=== PATIENT | female | born 1935 | race Caucasian/White ===

== ENCOUNTER 2021-05-12 21:27 | Inpatient (IN) | payer MEDICARE, MEDICAID, SELFPAY ==
--- NOTE | ~2021-05-12 | XR_ITS ---
EXAMINATION: XR CHEST CLINICAL INFORMATION: Altered mental status with question of aspiration COMPARISON: 09/05/2019 TECHNIQUE: Frontal view of the chest was obtained. FINDINGS: The lungs are hypoinflated. Again seen is a left chest wall dual-lead pacemaker in unchanged position. There is mild interstitial prominence bilaterally most likely secondary to hypoinflation. No focal consolidation, lung masses or pleural effusions are detected. XR/XR chest 1V IMPRESSION: No acute intrathoracic disease. Hypoinflated lungs. No evidence of pulmonary aspiration.
--- NOTE | ~2021-05-12 | XR_ITS ---
EXAMINATION: XR BILATERAL HIPS WITH AP PELVIS CLINICAL INFORMATION: Right hip pain after a fall COMPARISON: None TECHNIQUE: AP view of the pelvis and 2 views of each hip were obtained. FINDINGS: No fracture or dislocation of hips. Sacroiliac joints are normal. Mild degenerative spurring of the superior acetabular rim of the right hip. Mild joint narrowing of both hips. Marked degenerative spondylosis of lower lumbar spine. Surgical coils over the lower pelvis. Ortega catheter in bladder. Moderate volume of stool in colon. Nonobstructive bowel pattern. XR/XR hip BI w PEL1V IMPRESSION: No acute abnormality of pelvis or hips.
--- NOTE | ~2021-05-12 | CT_ITS ---
EXAMINATION: CT HEAD WITHOUT CONTRAST CLINICAL INFORMATION: Altered mental status COMPARISON: None. TECHNIQUE: Contiguous axial imaging was performed from the skull base to vertex without intravenous contrast. This CT examination was performed using dose optimization techniques as appropriate, variously including the following: * Automated exposure control * Adjustment of mA and/or kV according to patient size (this includes techniques or standardized protocols for targeted exams where dose is matched to indication/reason for exam; i.e. extremities or head) Use of iterative reconstruction technique DLP: 722 mGy-cm. FINDINGS: There is no evidence of acute intracranial hemorrhage or territorial infarction. No abnormal mass effect or midline shift is seen. Benites to white matter differentiation is well preserved. No extra-axial fluid collections are identified. No hydrocephalus. Proportional prominence of the ventricles and sulcal spaces is consistent with mild volume loss. Patchy periventricular and deep white matter hypoattenuation is consistent with mild small vessel ischemic changes. No acute osseous or soft tissue abnormality. Chronic appearing depression of the right lamina papyracea.. The mastoid air cells and visualized portions of the paranasal sinuses are well aerated. CT/CT head/brain wo con IMPRESSION: No acute intracranial pathology. Chronic volume loss with small vessel ischemic change.
--- NOTE | ~2021-05-12 | CT_ITS ---
EXAMINATION: CT ABDOMEN AND PELVIS WITHOUT CONTRAST CLINICAL INFORMATION: Vomiting COMPARISON: 08/09/2018 TECHNIQUE: Multidetector volumetric imaging was performed from the superior aspect of the liver through the pubic symphysis. Sagittal and coronal reformatted images were obtained on the technologist's workstation. This CT examination was performed using dose optimization techniques as appropriate, variously including the following: *Automated exposure control *Adjustment of mA and/or kV according to patient size (this includes techniques or standardized protocols for targeted exams where dose is matched to indication/reason for exam; i.e. extremities or head) *Use of iterative reconstruction technique DLP: 937 mGy-cm FINDINGS: LUNG BASES: Groundglass opacities of both lung bases with nodular opacities throughout the visualized right lung. Coronary artery calcifications. LIVER, GALLBLADDER, AND BILIARY TREE: The liver is normal in size, shape, and attenuation. No focal hepatic lesion or biliary ductal dilatation is present. The gallbladder is unremarkable with no evidence of radiopaque gallstones, gallbladder wall thickening, or obvious pericholecystic inflammatory changes. PANCREAS: Diffuse atrophy of the pancreatic parenchyma. No focal abnormality. SPLEEN: Unremarkable. ADRENAL GLANDS: Unremarkable. KIDNEYS AND URETERS: Renal atrophy. No hydronephrosis. Left lower pole 0.8 cm calculus is 13 cm from the posterior axillary line. This measures 500 Hounsfield units. Exophytic right upper pole 1.8 cm cyst with peripheral calcification. BLADDER: Unremarkable. GASTROINTESTINAL TRACT: Postsurgical changes of Jamil-en-Y gastric bypass. Normal caliber small bowel. No obstruction. No colonic wall thickening or inflammation. No free air or free fluid. Normal appendix. ABDOMINAL WALL: Prior ventral abdominal wall hernia repair. Rectus diastases with eventration of the abdominal wall. LYMPH NODES: Normal. VASCULAR: Normal caliber aorta with moderate atherosclerotic calcification. PELVIC VISCERA: The uterus and adnexa are unremarkable. OSSEOUS STRUCTURES: No acute or suspicious osseous abnormality. Degenerative changes of the spine. CT/CT abdomen pelvis wo con IMPRESSION: Groundglass opacities of the lung bases with nodular opacities throughout the visualized right lung. This could be infectious or inflammatory. Nonobstructing left lower pole renal calculus. Postsurgical changes of gastric bypass. No bowel obstruction.
[2021-05-12 21:31] VITALS: BP 98/60; PULSE 150; O2SAT 88
--- NOTE | 2021-05-12 21:40 | ECG_ITS ---
Test Reason : SEPSIS Blood Pressure : / mmHG Vent. Rate : 070 BPM Atrial Rate : 075 BPM P-R Int : 000 ms QRS Dur : 142 ms QT Int : 524 ms P-R-T Axes : 000 099 059 degrees QTc Int : 565 ms Ventricular-paced rhythm Abnormal ECG When compared with ECG of 26-AUG-2019 15:10, No significant changes seen Referred By: Radha Melo Electronically Signed By:STEPH HERNANDEZ MD
[2021-05-12 21:51] VITALS: BP 101/45; PULSE 78; RESP 15; TEMP 37.9; O2SAT 84; BMI 37.7
[2021-05-12 21:57] LABS: Glucose, Whole Blood 147 mg/dL (60-115)
[2021-05-12 22:00] VITALS: BP 102/44; PULSE 76; RESP 16; TEMP 37.2; O2SAT 92
--- NOTE | 2021-05-12 22:05 | ED.AMS ---
HPI - Altered Mental Status General Chief Complaint: Altered Mental Status Stated Complaint: AMS ? SEPSIS Time Seen by Provider: 05/12/21 21:39 Source: EMS Mode of arrival: EMS Limitations: no limitations History of Present Illness HPI narrative: Patient is brought to the emergency room by ambulance from a care home. Patient was found earlier today unresponsive, with vomited over her. It seems that patient aspirated. Patient at baseline is alert and oriented x3, today she is confused. Patient had an episode of vomiting in the ED. Patient denies chest pain or shortness of breath, no abdominal pain. However, she is confused and unable to provide any significant history. Related Data Home Medications Medication Instructions Recorded Confirmed bumetanide 1 mg tablet 1 tab PO DAILY 05/13/21 05/13/21 calcitriol 0.25 mcg capsule 1 cap PO DAILY 05/13/21 05/13/21 diphenhydramine HCl 25 mg capsule 25 mg PO DAILY PRN 05/13/21 05/13/21 (Benadryl) ferrous sulfate 325 PO DAILY 05/13/21 fluticasone furoate 100 1 puff INHALATION DAILY 05/13/21 05/13/21 mcg-vilanterol 25 mcg/dose inhalation powder (Breo Ellipta) gabapentin 100 mg capsule 100 mg PO TID 05/13/21 05/13/21 lactulose 10 gram/15 mL oral 30 ml PO DAILY 05/13/21 05/13/21 solution (Generlac) lovastatin 20 mg tablet 1 tab PO DAILY 05/13/21 05/13/21 metoprolol tartrate 25 mg tablet 12.5 mg PO BID 05/13/21 05/13/21 montelukast 10 mg tablet 1 tab PO DAILY 05/13/21 05/13/21 omeprazole 20 mg capsule,delayed 1 cap PO DAILY 05/13/21 05/13/21 release oxycodone-acetaminophen 7.5 mg-325 1 tab PO Q4H PRN 05/13/21 05/13/21 mg tablet rivaroxaban 15 mg tablet (Xarelto) 1 tab PO DAILY 05/13/21 05/13/21 sertraline 50 mg tablet 1 tab PO DAILY 05/13/21 05/13/21 trazodone 100 mg tablet 100 mg PO BEDTIME 05/13/21 05/13/21 trazodone 50 mg tablet 1 tab PO BEDTIME 05/13/21 05/13/21 Allergies Allergy/AdvReac Type Severity Reaction Status Date / Time amoxicillin [From Augmentin] Allergy Unknown Unknown Verified 05/12/21 21:50 clavulanic acid Allergy Unknown Unknown Verified 05/12/21 21:50 [From Augmentin] Review of Systems Review of Systems: Yes Unobtainable due to mental status [facility] Past Medical History Medical History Anxiety Atrial fibrillation CKD (chronic kidney disease) stage 3, GFR 30-59 ml/min COPD (chronic obstructive pulmonary disease) Diabetes mellitus Diastolic heart failure Hyperlipidemia Iron deficiency anemia Obstructive sleep apnea Osteoarthritis Pacemaker Pulmonary hypertension Vitamin D deficiency Social History Social History Alcohol intake: unknown Patient Tobacco Use Status: Never used Tobacco Use of substances other than those prescribed or required for medical reasons: Unknown Advance Directives: No Advance Directives Information Provided: Yes Physical Exam Vital Signs: Vital Signs: Last Vital Signs Temp 99 F 05/13/21 00:30 Pulse 73 05/13/21 01:51 Resp 17 05/13/21 01:51 BP 96/79 05/13/21 01:51 Pulse Ox 98 05/13/21 01:51 Body Mass Index 37.7 Const: Other: Appearance: Alert. Oriented X1. Confused, answering questions inappropriately Eyes: Pupils equal, round and reactive to light. ENT: Duration mucous membranes Neck: Normal inspection. Neck supple. No lymph nodes noted. No crepitus CVS: Normal heart rate and rhythm. Pulses normal. Normal S1 and S2 Respiratory: No respiratory distress. Bilateral rhonchi, oxygen saturation 84% on room air Abdomen: Soft , nondistended, seems nontender Skin: Skin warm and dry. Extremities: +2 bilateral pitting edema in lower extremites. No Lacerations. No Rash Neuro: Cranial nerves 2-12 grossly intact Course Course Course Narrative: I discussed the patient with our hospitalist Dr. Lombardi, patient is being admitted. Although the x-ray did not show any acute findings, the CT scan showed ground-glass opacities, COVID test negative. Patient likely aspirated. Patient is DNR DNI, has history of CHF, at this time, patient received 1 L fluids, Zosyn, blood pressure improved to 120 systolic. Patient is awake, states she feels okay but nauseous, has not vomited, denies abdominal pain Patient's troponin is elevated, patient has no chest pain, no EKG changes, likely secondary to demand ischemia. Troponin 2 is currently being obtained along with venous gases. MDM - Altered Mental Status Lab Data Result diagrams: 05/12/21 22:13 05/12/21 22:12 Labs: Lab Results 05/12/21 05/12/21 05/12/21 Range/Units 21:53 22:12 22:13 WBC 10.5 (4.8-10.8) X10*3/uL RBC 4.31 (4.20-5.50) X10*6/uL Hgb 12.3 (12.0-16.0) g/dl Hct 39.1 (37-47) % MCV 90.7 (80-98) fL MCH 28.5 (27.0-33.0) pg MCHC 31.5 (31.0-35.0) g/dl RDW 13.9 (11.0-16.0) % Plt Count 359 (160-400) X10*3/uL MPV 9.8 (9.4-12.3) fL Immature Gran % (Auto) 0.7 H (0.0-0.4) % Neut % (Auto) 83.2 H (45-73) % Lymph % (Auto) 8.4 L (20-40) % [place] % (Auto) 6.9 (2-11) % Eos % (Auto) 0.3 (0-4) % Baso % (Auto) 0.5 (0-2) % Lymph # (Auto) 0.9 L (1.2-4.9) X10*3/uL [place] # (Auto) 0.7 (0.1-1.2) X10*3/uL Eos # (Auto) 0.0 (0.0-0.4) X10*3/uL Baso # (Auto) 0.1 (0.0-0.2) X10*3/uL Abs Immat Gran (auto) 0.07 H (0.00-0.03) X10*3/uL Absolute Neuts (auto) 8.7 H (2.0-8.3) X10*3/uL Absolute Nucleated RBC 0.000 (0.0-0.012) X10*3/uL Nucleated RBC % (auto) 0.0 (0.0-0.2) /100WBC Sodium 137 (135-145) mmol/L Potassium 3.9 (3.3-5.1) mmol/L Chloride 98 (96-108) mmol/L Carbon Dioxide 22 (22-29) mmol/L Anion Gap 21 H (12-20) BUN 92 H* (9-16) mg/dL Creatinine 3.87 H (0.5-1.4) mg/dL Estim Creat Clear Calc 13.8 Estimated GFR 11 POC Glucose 147 H (60-115) mg/dL Random Glucose 150 H (60-115) mg/dL Lactic Acid (0.5-2.0) mmol/L Calcium 8.8 (8.4-10.2) mg/dL Total Bilirubin 0.6 (0.0-1.0) mg/dL Direct Bilirubin 0.3 (0.0-0.5) mg/dL AST 37 H (5-31) U/L ALT 15 (0-31) U/L Alkaline Phosphatase 86 (39-117) U/L Troponin I High Sens (<3.5-17.0) ng/L B-Natriuretic Peptide (<100) pg/mL Total Protein 6.8 (6.5-8.0) g/dL Albumin 3.2 L (3.5-5.0) g/dL Urine Color Urine Appearance Urine pH (5.0-8.0) Ur Specific [place] (1.005-1.025) Urine Protein (NEG-TRACE) MG/DL Urine Glucose (UA) (NEG) MG/DL Urine Ketones (NEG) MG/DL Urine Blood (NEG) Urine Nitrite (NEG) Ur Leukocyte Esterase (NEG) Coronavirus (PCR) (Negative) Influenza Type A (PCR) (Negative) Influenza Type B (PCR) (Negative) RSV RNA Qual (PCR) (Negative) 05/12/21 05/12/21 05/12/21 Range/Units 22:13 22:13 22:19 WBC (4.8-10.8) X10*3/uL RBC (4.20-5.50) X10*6/uL Hgb (12.0-16.0) g/dl Hct (37-47) % MCV (80-98) fL MCH (27.0-33.0) pg MCHC (31.0-35.0) g/dl RDW (11.0-16.0) % Plt Count (160-400) X10*3/uL MPV (9.4-12.3) fL Immature Gran % (Auto) (0.0-0.4) % Neut % (Auto) (45-73) % Lymph % (Auto) (20-40) % [place] % (Auto) (2-11) % Eos % (Auto) (0-4) % Baso % (Auto) (0-2) % Lymph # (Auto) (1.2-4.9) X10*3/uL [place] # (Auto) (0.1-1.2) X10*3/uL Eos # (Auto) (0.0-0.4) X10*3/uL Baso # (Auto) (0.0-0.2) X10*3/uL Abs Immat Gran (auto) (0.00-0.03) X10*3/uL Absolute Neuts (auto) (2.0-8.3) X10*3/uL Absolute Nucleated RBC (0.0-0.012) X10*3/uL Nucleated RBC % (auto) (0.0-0.2) /100WBC Sodium (135-145) mmol/L Potassium (3.3-5.1) mmol/L Chloride (96-108) mmol/L Carbon Dioxide (22-29) mmol/L Anion Gap (12-20) BUN (9-16) mg/dL Creatinine (0.5-1.4) mg/dL Estim Creat Clear Calc Estimated GFR POC Glucose (60-115) mg/dL Random Glucose (60-115) mg/dL Lactic Acid 1.9 (0.5-2.0) mmol/L Calcium (8.4-10.2) mg/dL Total Bilirubin (0.0-1.0) mg/dL Direct Bilirubin (0.0-0.5) mg/dL AST (5-31) U/L ALT (0-31) U/L Alkaline Phosphatase (39-117) U/L Troponin I High Sens 73.6 H* (<3.5-17.0) ng/L B-Natriuretic Peptide 366 H (<100) pg/mL Total Protein (6.5-8.0) g/dL Albumin (3.5-5.0) g/dL Urine Color DARK YELLOW Urine Appearance CLEAR Urine pH 5.5 (5.0-8.0) Ur Specific [place] 1.020 (1.005-1.025) Urine Protein NEG (NEG-TRACE) MG/DL Urine Glucose (UA) NEG (NEG) MG/DL Urine Ketones NEG (NEG) MG/DL Urine Blood NEG (NEG) Urine Nitrite NEG (NEG) Ur Leukocyte Esterase NEG (NEG) Coronavirus (PCR) (Negative) Influenza Type A (PCR) (Negative) Influenza Type B (PCR) (Negative) RSV RNA Qual (PCR) (Negative) 05/12/21 Range/Units 22:27 WBC (4.8-10.8) X10*3/uL RBC (4.20-5.50) X10*6/uL Hgb (12.0-16.0) g/dl Hct (37-47) % MCV (80-98) fL MCH (27.0-33.0) pg MCHC (31.0-35.0) g/dl RDW (11.0-16.0) % Plt Count (160-400) X10*3/uL MPV (9.4-12.3) fL Immature Gran % (Auto) (0.0-0.4) % Neut % (Auto) (45-73) % Lymph % (Auto) (20-40) % [place] % (Auto) (2-11) % Eos % (Auto) (0-4) % Baso % (Auto) (0-2) % Lymph # (Auto) (1.2-4.9) X10*3/uL [place] # (Auto) (0.1-1.2) X10*3/uL Eos # (Auto) (0.0-0.4) X10*3/uL Baso # (Auto) (0.0-0.2) X10*3/uL Abs Immat Gran (auto) (0.00-0.03) X10*3/uL Absolute Neuts (auto) (2.0-8.3) X10*3/uL Absolute Nucleated RBC (0.0-0.012) X10*3/uL Nucleated RBC % (auto) (0.0-0.2) /100WBC Sodium (135-145) mmol/L Potassium (3.3-5.1) mmol/L Chloride (96-108) mmol/L Carbon Dioxide (22-29) mmol/L Anion Gap (12-20) BUN (9-16) mg/dL Creatinine (0.5-1.4) mg/dL Estim Creat Clear Calc Estimated GFR POC Glucose (60-115) mg/dL Random Glucose (60-115) mg/dL Lactic Acid (0.5-2.0) mmol/L Calcium (8.4-10.2) mg/dL Total Bilirubin (0.0-1.0) mg/dL Direct Bilirubin (0.0-0.5) mg/dL AST (5-31) U/L ALT (0-31) U/L Alkaline Phosphatase (39-117) U/L Troponin I High Sens (<3.5-17.0) ng/L B-Natriuretic Peptide (<100) pg/mL Total Protein (6.5-8.0) g/dL Albumin (3.5-5.0) g/dL Urine Color Urine Appearance Urine pH (5.0-8.0) Ur Specific [place] (1.005-1.025) Urine Protein (NEG-TRACE) MG/DL Urine Glucose (UA) (NEG) MG/DL Urine Ketones (NEG) MG/DL Urine Blood (NEG) Urine Nitrite (NEG) Ur Leukocyte Esterase (NEG) Coronavirus (PCR) NEGATIVE (Negative) Influenza Type A (PCR) NEGATIVE (Negative) Influenza Type B (PCR) NEGATIVE (Negative) RSV RNA Qual (PCR) NEGATIVE (Negative) Imaging Data Chest x-ray: Radiologist's impression: The lungs are hypoinflated. Again seen is a left chest wall dual-lead pacemaker in unchanged position. There is mild interstitial prominence bilaterally most likely secondary to hypoinflation. No focal consolidation, lung masses or pleural effusions are detected. XR/XR chest 1V IMPRESSION: No acute intrathoracic disease. Hypoinflated lungs. No evidence of pulmonary aspiration. CT scan - head: Radiologist's impression: There is no evidence of acute intracranial hemorrhage or territorial infarction. No abnormal mass effect or midline shift is seen. Benites to white matter differentiation is well preserved. No extra-axial fluid collections are identified. No hydrocephalus. Proportional prominence of the ventricles and sulcal spaces is consistent with mild volume loss. Patchy periventricular and deep white matter hypoattenuation is consistent with mild small vessel ischemic changes. No acute osseous or soft tissue abnormality. Chronic appearing depression of the right lamina papyracea.. The mastoid air cells and visualized portions of the paranasal sinuses are well aerated. ? CT/CT head/brain wo con IMPRESSION: No acute intracranial pathology. Chronic volume loss with small vessel ischemic change. CT scan - abdomen: Radiologist's impression: FINDINGS: LUNG BASES: Groundglass opacities of both lung bases with nodular opacities throughout the visualized right lung. Coronary artery calcifications. LIVER, GALLBLADDER, AND BILIARY TREE: The liver is normal in size, shape, and attenuation. No focal hepatic lesion or biliary ductal dilatation is present. The gallbladder is unremarkable with no evidence of radiopaque gallstones, gallbladder wall thickening, or obvious pericholecystic inflammatory changes.? PANCREAS: Diffuse atrophy of the pancreatic parenchyma. No focal abnormality.? SPLEEN: Unremarkable.? ADRENAL GLANDS: Unremarkable.? KIDNEYS AND URETERS: Renal atrophy. No hydronephrosis. Left lower pole 0.8 cm calculus is 13 cm from the posterior axillary line. This measures 500 Hounsfield units. Exophytic right upper pole 1.8 cm cyst with peripheral calcification. BLADDER: Unremarkable.? GASTROINTESTINAL TRACT: Postsurgical changes of Jamil-en-Y gastric bypass. Normal caliber small bowel. No obstruction. No colonic wall thickening or inflammation. No free air or free fluid. Normal appendix. ABDOMINAL WALL: Prior ventral abdominal wall hernia repair. Rectus diastases with eventration of the abdominal wall.? LYMPH NODES: Normal. VASCULAR: Normal caliber aorta with moderate atherosclerotic calcification. PELVIC VISCERA: The uterus and adnexa are unremarkable.? OSSEOUS STRUCTURES: No acute or suspicious osseous abnormality. Degenerative changes of the spine.? CT/CT abdomen pelvis wo con IMPRESSION: Groundglass opacities of the lung bases with nodular opacities throughout the visualized right lung. This could be infectious or inflammatory. ? Nonobstructing left lower pole renal calculus. ? Postsurgical changes of gastric bypass. No bowel obstruction. ECG Data ECG #1: Attestation: I personally reviewed and interpreted this ECG as follows: (Heart rate 70, no ST segment depression or elevation, nonspecific interventricular block) Critical Care Time Critical Care Time Critical Care Time: Yes Total Critical Care Time: 60 Attestation: Total critical care time of 60 minutes, including direct patient care, stabilization, and consult Discharge Plan Discharge Clinical Impression: Vomiting, Aspiration pneumonia, [id number] kidney injury, Demand ischemia Patient Disposition: Admitted As Inpatient
[2021-05-12 22:20] LABS: MANUAL DIFF FLAG NO
[2021-05-12 22:22] LABS: Basophils Absolute Auto 0.1 X10*3/uL (0.0-0.2); Basophils Percent Auto 0.5 % (0-2); Eosinophils Percent Auto 0.3 % (0-4); Hematocrit 39.1 % (37-47); Hemoglobin 12.3 g/dl (12.0-16.0); Imm Gran Abs Auto 0.07 X10*3/uL (0.00-0.03); Imm Gran Pct Auto 0.7 % (0.0-0.4); Lymphocytes Absolute Auto 0.9 X10*3/uL (1.2-4.9); Lymphocytes Percent Auto 8.4 % (20-40); Mean Corpuscular HGB Conc 31.5 g/dl (31.0-35.0); Mean Corpuscular Hemoglobin 28.5 pg (27.0-33.0); Mean Corpuscular Volume 90.7 fL (80-98); Mean Platelet Volume 9.8 fL (9.4-12.3); Monocytes Absolute Auto 0.7 X10*3/uL (0.1-1.2); Monocytes Percent Auto 6.9 % (2-11); Neutrophils Absolute Auto 8.7 X10*3/uL (2.0-8.3); Neutrophils Percent Auto 83.2 % (45-73); Platelet Count 359 X10*3/uL (160-400); Red Blood Count 4.31 X10*6/uL (4.20-5.50); Red Cell Distribution Width 13.9 % (11.0-16.0); White Blood Count 10.5 X10*3/uL (4.8-10.8)
[2021-05-12] MEDS: ondansetron HCL 4 MG/2 ML VIAL IVPUSH (22:26)
[2021-05-12] MEDS: 0.9 % Sodium Chloride 1,000 ML 999 ML IVCONT (22:26)
[2021-05-12 22:27] LABS: Glucose Urine UA NEG (NEG); Leukocyte Esterase Urine NEG (NEG); Nitrite Urine NEG (NEG); PH 5.5 (5.0-8.0); Urine Blood NEG (NEG); Urine Ketones NEG (NEG); Urine Protein NEG (NEG-TRACE)
[2021-05-12 22:29] LABS: Appearance Urine CLEAR; Color Urine DARK YELLOW
[2021-05-12] MEDS: Piperacillin Sodium/Tazobactam 3.375 GM in 0.9 % Sodium Chloride 50 ML IV (22:31)
--- NOTE | 2021-05-12 22:31 | PC.NURSE ---
Pt has been drowsy but easily arousable to voice. Mouth breathing, pale, pupils PERRLA, poor bed mobility and unable to follow commands. a fib on monitor. pt has been a very difficult stick.
[2021-05-12 22:34] VITALS: BP 86/46
[2021-05-12 22:41] LABS: Lactic Acid 1.9 mmol/L (0.5-2.0)
[2021-05-12 22:52] LABS: B Type Natriuretic Peptide 366 pg/mL (<100); Troponin-I High Sensitivity 73.6 ng/L (<3.5-17.0)
[2021-05-12 22:53] LABS: Alanine Aminotransferase 15 U/L (0-31); Albumin Level 3.2 g/dL (3.5-5.0); Alkaline Phosphatase 86 U/L (39-117); Anion Gap 21 (12-20); Aspartate Amino Transferase 37 U/L (5-31); Bilirubin Direct 0.3 mg/dL (0.0-0.5); Bilirubin Total 0.6 mg/dL (0.0-1.0); Blood Urea Nitrogen 92 mg/dL (9-16); Calcium 8.8 mg/dL (8.4-10.2); Carbon Dioxide 22 mmol/L (22-29); Chloride 98 mmol/L (96-108); Creatinine Clr Calc Pharmacy 13.8; Estimated Glomerular Filt Rate 11; Glucose Random 150 mg/dL (60-115); Potassium 3.9 mmol/L (3.3-5.1); Sodium 137 mmol/L (135-145); Total Protein 6.8 g/dL (6.5-8.0)
[2021-05-12 23:11] LABS: Influenza A PCR NEGATIVE (Negative); Influenza B PCR NEGATIVE (Negative); Resp Syncy Virus RNA Qual PCR NEGATIVE (Negative); SARS COV2 PCR INHOUSE NEGATIVE (Negative)
[2021-05-12 23:16] VITALS: BP 109/90; PULSE 72; RESP 17; TEMP 37.2; O2SAT 94
[2021-05-13] VITALS (12 sets, daily range): BP systolic 94–168; BP diastolic 32–79; PULSE 67–93; RESP 15–70; TEMP 36.2–37.7; O2SAT 93–99; BMI 37.8
--- NOTE | 2021-05-13 00:07 | PC.NURSE ---
PT RETURNED FROM CT SCAN. PT WAKES EASILY, MOSTLY TAMAZIGHT SPEAKING. NO RESPIRATORY DISTRESS. PT DOES NOT STAY AWAKE, FALLS BACK ASLEEP WHEN NOT IN CONVERSATION.
[2021-05-13 01:49] LABS: VBG Base Excess -4.6 mmol/L; VBG HCO3 15 mmol/L (22-26); VBG pCO2 17 mmHg; VBG pH 7.53 (7.32-7.43); VBG pO2 154 mmHg; Venous Blood Gas Refer to POC result
[2021-05-13] MEDS: Lactated Ringers 1,000 ML 100 ML IVCONT ×3 (02:34→20:51)
[2021-05-13 02:36] LABS: Troponin-I High Sensitivity 51.8 ng/L (<3.5-17.0)
--- NOTE | 2021-05-13 02:52 | PC.NURSE ---
LEVOFLOXACIN NOT VERIFIED BY PHARMACY, DELAY IN ADMINISTRATION.
--- NOTE | 2021-05-13 04:19 | PC.NURSE ---
report given to rn on floor, pt ready for transport.
--- NOTE | 2021-05-13 05:26 | PM.IMHP ---
History of Present Illness Date of Service: 05/13/21 Chief Complaint: Unresponsive This is an 86-year-old female with past medical history of AFib, CKD, COPD, DM, diastolic heart failure, HLD, anxiety, PATSY, pulmonary hypertension, who is sent from assisted after being found unresponsive in bed with vomit all over her. Patient's patch speaking, very lethargic and somnolent unable to get much history from her. Therefore history is obtained mostly from ED physician. On arrival to the ED patient was found to have a temp of a 100.3?, was satting 84% on room air, currently on 2 L satting 94%. Her other vitals are significant for blood pressure of 101/45 and a heart rate 78. For WBC count of 10.5, hemoglobin of 12.3, venous blood pH of 7.53 with no significant abnormality otherwise BUN of 92, creatinine of 3.87 with baseline around 32/1.91, AST of 37, has sensed V troponin 73.6, trended down to 51.8, BNP of 366, albumin of 3.2, UA negative. Chest x-ray negative. COVID negative. Patient will be admitted for further management Past medical history as per EMR Review of Systems Review of Systems: Yes all other systems are reviewed and are negative [facility] Medical History Anxiety Atrial fibrillation CKD (chronic kidney disease) stage 3, GFR 30-59 ml/min COPD (chronic obstructive pulmonary disease) Diabetes mellitus Diastolic heart failure Hyperlipidemia Iron deficiency anemia Obstructive sleep apnea Osteoarthritis Pacemaker Pulmonary hypertension Vitamin D deficiency Social History Household Members: Other Housing: Jail Alcohol intake: unknown Patient Tobacco Use Status: Never used Tobacco Use of substances other than those prescribed or required for medical reasons: No Have you been hit, kicked, punched, or otherwise hurt by someone within the past year? If so, by whom?: No Do you feel safe in your current relationship?: No Current Relationship Is there a partner from a previous relationship who is making you feel unsafe now?: No Are you made to feel afraid or neglected: No Advance Directives: No Advance Directives Information Provided: Yes Advance Directives on File: Yes Advance Directives Date on File: 10/16/19 Do you have thoughts of harming others: None Do you have a plan to hurt others: No Plan Recently lost weight without trying: Unsure Nutrition Risks: On aspiration precautions Patient : No : No Poor oral hygiene: No Meds Allergies Allergy/AdvReac Type Severity Reaction Status Date / Time amoxicillin [From Augmentin] Allergy Unknown Unknown Verified 05/12/21 21:50 clavulanic acid Allergy Unknown Unknown Verified 05/12/21 21:50 [From Augmentin] Active Medications: Current Medications Generic Name Dose Route Start Last Admin Trade Name Freq PRN Reason Stop Dose Admin Acetaminophen 650 mg 05/13/21 01:43 Acetaminophen 325 Mg Tablet PO Q6H PRN Pain, Mild (Pain Scale 1-3) Calcitriol 0.25 mcg 05/13/21 09:00 Calcitriol 0.25 Mcg Capsule PO DAILY [facility] Diphenhydramine HCl 25 mg 05/13/21 02:53 Diphenhydramine Hcl 25 Mg Tablet PO DAILY PRN Itching Docusate Sodium 100 mg 05/13/21 01:43 Docusate Sodium 100 Mg Capsule PO DAILY PRN Constipation Fluticasone/Vilanterol 1 puff 05/13/21 09:00 Fluticasone/Vilanterol 100/25 Blst.W.Dev INHALE DAILY [facility] Gabapentin 100 mg 05/13/21 09:00 Gabapentin 100 Mg Capsule PO TID [facility] Lactated Ringer's 1,000 mls @ 100 mls/hr 05/13/21 01:43 05/13/21 02:34 Lr IVCONT 100 mls/hr .Q10H [facility] Administration Piperacillin Sod/Tazobactam 50 mls @ 100 mls/hr 05/13/21 06:00 Sod 3.375 gm/ Sodium Chloride IV Q8H [facility] Lactulose 20 gm 05/13/21 09:00 Lactulose 20 Gm/30 Ml Solution PO DAILY [facility] Metoprolol Tartrate 12.5 mg 05/13/21 09:00 Metoprolol Tartrate 12.5 Mg Halftab PO BID [facility] Protocol Montelukast Sodium 10 mg 05/13/21 09:00 Montelukast Sodium 10 Mg Tablet PO DAILY [facility] Omeprazole 20 mg 05/13/21 09:00 Omeprazole 20 Mg Capsule.Dr PO DAILY [facility] Ondansetron HCl 4 mg 05/13/21 01:43 Ondansetron Hcl 4 Mg/2 Ml Vial IVPUSH Q8H PRN Nausea and Vomiting Oxycodone HCl 7.5 mg 05/13/21 03:28 Oxycodone Hcl Immed Release 5 Mg Tablet PO Q4H PRN Pain (Scale Score 7-10) Pharmacy Consult 1 each 05/12/21 23:29 Consult Rx Perform Med Rec MISCELLANE ONCE PRN Consult order Rivaroxaban 15 mg 05/13/21 09:00 Rivaroxaban 15 Mg Tablet PO DAILY [facility] Sertraline HCl 50 mg 05/13/21 09:00 Sertraline Hcl 50 Mg Tablet PO DAILY [facility] Sodium Chloride 3 ml 05/13/21 08:00 0.9 % Sodium Chloride Flush 3 Ml Syringe IVFLUSH QSHIFT [facility] Trazodone HCl 50 mg 05/13/21 21:00 Trazodone Hcl 50 Mg Tablet PO BEDTIME [facility] Trazodone HCl 100 mg 05/13/21 21:00 Trazodone Hcl 100 Mg Tablet PO BEDTIME [facility] Home Medications Medication Instructions Recorded Confirmed Last Taken Type bumetanide 1 mg tablet 1 tab PO DAILY 05/13/21 05/13/21 Unknown History calcitriol 0.25 mcg capsule 1 cap PO DAILY 05/13/21 05/13/21 Unknown History diphenhydramine HCl 25 mg capsule 25 mg PO DAILY PRN 05/13/21 05/13/21 Unknown History (Benadryl) ferrous sulfate 325 PO DAILY 05/13/21 Unknown History fluticasone furoate 100 1 puff INHALATION DAILY 05/13/21 05/13/21 Unknown History mcg-vilanterol 25 mcg/dose inhalation powder (Breo Ellipta) gabapentin 100 mg capsule 100 mg PO TID 05/13/21 05/13/21 Unknown History lactulose 10 gram/15 mL oral 30 ml PO DAILY 05/13/21 05/13/21 Unknown History solution (Generlac) lovastatin 20 mg tablet 1 tab PO DAILY 05/13/21 05/13/21 Unknown History metoprolol tartrate 25 mg tablet 12.5 mg PO BID 05/13/21 05/13/21 Unknown History montelukast 10 mg tablet 1 tab PO DAILY 05/13/21 05/13/21 Unknown History omeprazole 20 mg capsule,delayed 1 cap PO DAILY 05/13/21 05/13/21 Unknown History release oxycodone-acetaminophen 7.5 mg-325 1 tab PO Q4H PRN 05/13/21 05/13/21 Unknown History mg tablet rivaroxaban 15 mg tablet (Xarelto) 1 tab PO DAILY 05/13/21 05/13/21 Unknown History sertraline 50 mg tablet 1 tab PO DAILY 05/13/21 05/13/21 Unknown History trazodone 100 mg tablet 100 mg PO BEDTIME 05/13/21 05/13/21 Unknown History trazodone 50 mg tablet 1 tab PO BEDTIME 05/13/21 05/13/21 Unknown History Physical Exam Vital Signs and Narrative: Vital Signs: Last Vital Signs Temp 97.8 F 05/13/21 05:10 Pulse 93 05/13/21 05:10 Resp 70 H 05/13/21 05:10 BP 168/74 H 05/13/21 05:10 Pulse Ox 94 05/13/21 05:10 Body Mass Index 37.8 Const: General: patient obtunded Orientation/consciousness: patient obtunded Eyes: General: appearance normal, both eyes and all related structures Resp: Effort & Inspection: normal respiratory effort Auscultation: rales and rhonchi Cardio: Rate: regular rate Rhythm: regular rhythm GI: Palpation (GI): Soft to palpation Auscultation: normal bowel sounds Skin: General skin exam: no rashes or lesions noted Neuro: General: patient obtunded Extrem: General: Yes normal to inspection and Yes no pedal edema Results Labs CBC and Chem 7: 05/12/21 22:13 05/12/21 22:12 Labs: Laboratory Results - last 24 hr 05/12/21 05/12/21 05/12/21 21:53 22:12 22:13 MCV 90.7 MCH 28.5 MCHC 31.5 RDW 13.9 Plt Count 359 MPV 9.8 Immature Gran % (Auto) 0.7 H Neut % (Auto) 83.2 H Lymph % (Auto) 8.4 L [place] % (Auto) 6.9 Eos % (Auto) 0.3 Baso % (Auto) 0.5 Lymph # (Auto) 0.9 L [place] # (Auto) 0.7 Eos # (Auto) 0.0 Baso # (Auto) 0.1 Abs Immat Gran (auto) 0.07 H Absolute Neuts (auto) 8.7 H Absolute Nucleated RBC 0.000 Nucleated RBC % (auto) 0.0 VBG pH VBG pCO2 VBG pO2 VBG HCO3 VBG O2 Saturation VBG Base Excess Anion Gap 21 H Estim Creat Clear Calc 13.8 Estimated GFR 11 POC Glucose 147 H Random Glucose 150 H Lactic Acid Calcium 8.8 Total Bilirubin 0.6 Direct Bilirubin 0.3 AST 37 H ALT 15 Alkaline Phosphatase 86 Troponin I High Sens B-Natriuretic Peptide Total Protein 6.8 Albumin 3.2 L Urine Color Urine Appearance Urine pH Ur Specific [place] Urine Protein Urine Glucose (UA) Urine Ketones Urine Blood Urine Nitrite Ur Leukocyte Esterase Coronavirus (PCR) Influenza Type A (PCR) Influenza Type B (PCR) RSV RNA Qual (PCR) 05/12/21 05/12/21 05/12/21 22:13 22:13 22:19 MCV MCH MCHC RDW Plt Count MPV Immature Gran % (Auto) Neut % (Auto) Lymph % (Auto) [place] % (Auto) Eos % (Auto) Baso % (Auto) Lymph # (Auto) [place] # (Auto) Eos # (Auto) Baso # (Auto) Abs Immat Gran (auto) Absolute Neuts (auto) Absolute Nucleated RBC Nucleated RBC % (auto) VBG pH VBG pCO2 VBG pO2 VBG HCO3 VBG O2 Saturation VBG Base Excess Anion Gap Estim Creat Clear Calc Estimated GFR POC Glucose Random Glucose Lactic Acid 1.9 Calcium Total Bilirubin Direct Bilirubin AST ALT Alkaline Phosphatase Troponin I High Sens 73.6 H* B-Natriuretic Peptide 366 H Total Protein Albumin Urine Color DARK YELLOW Urine Appearance CLEAR Urine pH 5.5 Ur Specific [place] 1.020 Urine Protein NEG Urine Glucose (UA) NEG Urine Ketones NEG Urine Blood NEG Urine Nitrite NEG Ur Leukocyte Esterase NEG Coronavirus (PCR) Influenza Type A (PCR) Influenza Type B (PCR) RSV RNA Qual (PCR) 05/12/21 05/13/21 05/13/21 22:27 01:40 01:40 MCV MCH MCHC RDW Plt Count MPV Immature Gran % (Auto) Neut % (Auto) Lymph % (Auto) [place] % (Auto) Eos % (Auto) Baso % (Auto) Lymph # (Auto) [place] # (Auto) Eos # (Auto) Baso # (Auto) Abs Immat Gran (auto) Absolute Neuts (auto) Absolute Nucleated RBC Nucleated RBC % (auto) VBG pH 7.53 H VBG pCO2 17 VBG pO2 154 VBG HCO3 15 L VBG O2 Saturation 96.0 VBG Base Excess -4.6 Anion Gap Estim Creat Clear Calc Estimated GFR POC Glucose Random Glucose Lactic Acid Calcium Total Bilirubin Direct Bilirubin AST ALT Alkaline Phosphatase Troponin I High Sens 51.8 H* B-Natriuretic Peptide Total Protein Albumin Urine Color Urine Appearance Urine pH Ur Specific [place] Urine Protein Urine Glucose (UA) Urine Ketones Urine Blood Urine Nitrite Ur Leukocyte Esterase Coronavirus (PCR) NEGATIVE Influenza Type A (PCR) NEGATIVE Influenza Type B (PCR) NEGATIVE RSV RNA Qual (PCR) NEGATIVE ECG Interpretation: Wide QRS rhythm Has a QT see interval 565, Imaging Radiologist's Impressions: Impressions Chest X-Ray 05/12/21 21:40 IMPRESSION: No acute intrathoracic disease. Hypoinflated lungs. No evidence of pulmonary aspiration. Head CT 05/12/21 23:30 IMPRESSION: No acute intracranial pathology. Chronic volume loss with small vessel ischemic change. Abdomen/Pelvis CT 05/13/21 00:38 IMPRESSION: Groundglass opacities of the lung bases with nodular opacities throughout the visualized right lung. This could be infectious or inflammatory. Nonobstructing left lower pole renal calculus. Postsurgical changes of gastric bypass. No bowel obstruction. Assessment and Plan (1) Acute respiratory failure with hypoxia: Status: Acute (2) Vomiting: Status: Acute (3) Aspiration pneumonia: Status: Acute (4) [id number] kidney injury: Status: Acute (5) Elevated troponin: Status: Acute (6) Prolonged QT interval: Status: Acute (7) Encephalopathy: Status: Acute 86-year-old female who was brought in from assisted for unresponsiveness after she was found to have vomited all over herself. Found to be hypoxic # acute hypoxic respiratory failure - most likely secondary to aspiration pneumonia - patient was found unresponsive with vomit all over herself - on presentation O2 was 84 % on room air - currently on 2 L of oxygen satting 94% - has rhonchi on exam - chest x-ray negative but CT abdomen shows bilateral ground-glass opacities in the lung bases with nodular opacities throughout the visualized right lung. - at this time will cover her for aspiration pneumonia - O2 as required # encephalopathy - possibly secondary to MIKA/hypoxia - patient arousable but lethargic - management of pneumonia, MIKA, and hypoxia - follow mental status # vomiting - unclear etiology - abdominal CT/pelvic negative - given her prolonged QTC will be very conservative with Zofran - NPO # MIKA and CKD - significantly elevated creatinine - most likely prerenal secondary to dehydration - will start on IV fluids - follow BMP # elevated troponin - no EKG changes suggestive of ACS - has prolonged QT interval - troponin trended down - admit to telemetry # prolonged QTc - normal potassium, will check magnesium level - avoid QT prolonging medications Her home medications # AFib - continue Xarelto, metoprolol # heart failure - although has elevated BNP, clinically does not appear to be in heart failure - will hold her budesonide for 1-2 days given her MIKA - if creatinine function worsens, resume budesonide, and evaluate for CHF # history of diabetes - will place her on low-dose sliding scale insulin - at this time patient is NPO but wounds resumes eating will consider diabetic diet DVT prophylaxis: Xarelto Quality Stroke Does the patient have a stroke diagnosis?: No VTE Prior VTE?: No VTE Risk Level:: Medical - moderate - high VTE Device Contraindication: Treatment Not Indicated VTE Drug Contraindication: N/A - Med Ordered
[2021-05-13] MEDS: Piperacillin Sodium/Tazobactam 3.375 GM in 0.9 % Sodium Chloride 50 ML IV (06:13)
[2021-05-13 07:02] LABS: MANUAL DIFF FLAG SCAN; PLT CLUMP 1; SCAN SMEAR FLAG 1
[2021-05-13 07:05] LABS: Basophils Percent Auto 0.3 % (0-2); Eosinophils Percent Auto 0.2 % (0-4); Hemoglobin 11.5 g/dl (12.0-16.0); Imm Gran Abs Auto 0.07 X10*3/uL (0.00-0.03); Imm Gran Pct Auto 0.6 % (0.0-0.4); Lymphocytes Absolute Auto 0.5 X10*3/uL (1.2-4.9); Lymphocytes Percent Auto 4.4 % (20-40); Mean Corpuscular HGB Conc 31.1 g/dl (31.0-35.0); Mean Corpuscular Hemoglobin 28.6 pg (27.0-33.0); Monocytes Absolute Auto 0.8 X10*3/uL (0.1-1.2); Neutrophils Absolute Auto 10.3 X10*3/uL (2.0-8.3); Neutrophils Percent Auto 87.5 % (45-73); Red Blood Count 4.02 X10*6/uL (4.20-5.50); Red Cell Distribution Width 13.9 % (11.0-16.0); White Blood Count 11.8 X10*3/uL (4.8-10.8)
[2021-05-13 07:19] LABS: Glucose, Whole Blood 137 mg/dL (60-115)
[2021-05-13 07:24] LABS: Anion Gap 21 (12-20); Blood Urea Nitrogen 85 mg/dL (9-16); Calcium 8.2 mg/dL (8.4-10.2); Carbon Dioxide 20 mmol/L (22-29); Chloride 102 mmol/L (96-108); Creatinine Clr Calc Pharmacy 16.1; Estimated Glomerular Filt Rate 13; Glucose Random 122 mg/dL (60-115); Magnesium 2.6 mg/dL (1.6-2.6); Potassium 3.9 mmol/L (3.3-5.1); Sodium 139 mmol/L (135-145)
[2021-05-13] MEDS: Fluticasone/Vilanterol 100/25 BLST.W.DEV 1 PUFF INHALE (07:56)
[2021-05-13 08:09] LABS: Platelet Count 217 X10*3/uL (160-400)
[2021-05-13 08:10] LABS: Mean Platelet Volume 11.4 fL (9.4-12.3); SLIDE REVIEW VERIFIED
--- NOTE | 2021-05-13 08:44 | PM.CNNEP ---
History of Present Illness Reason for Consult Consult date: 05/13/21 Reason for consult: MIKA Chief Complaint Chief complaint: Hypoxic, Aspiration PNA, MIKA History of Present Illness Narrative: 86 yo with MIKA and CKD past medical history of AFib, CKD, COPD, DM, diastolic heart failure, HLD, anxiety, PATSY, pulmonary hypertension, who is sent from skilled nursing after being found unresponsive in bed with vomit all over her.? KIDNEYS AND URETERS: Renal atrophy. No hydronephrosis. Left lower pole 0.8 cm calculus is 13 cm from the posterior axillary line. This measures 500 Hounsfield units. Exophytic right upper pole 1.8 cm cyst with peripheral calcification. Review of Systems Review of Systems Constitutional : No Weight loss, No Fever, No Chills, No Night Sweats, No Fatigue, No Malaise ENT/Mouth : No Hearing loss, No Ear Pain, No Nasal Congestion, No Sinus Pain, No Hoarseness, No sore throat, No Rhinorrhea, No Swallowing Difficulty Eyes: No Eye Pain, No Swelling, No Redness, No Foreign Body, No Discharge, No Vision Changes Cardiovascular : No Chest Pain, No SOB, No Dyspnea on Exertion, No Orthopnea, No Edema, No Palpitations Respiratory : No Cough, No Sputum, No Wheezing, No Smoke Exposure, No Dyspnea Gastrointestinal : No Nausea, No Vomiting, No Diarrhea, No Constipation, No abdominal Pain, No Hematochezia, No Melena Genitourinary : no irregular bleeding, No Dysuria, No Urinary Frequency, No Hematuria, No Urinary Incontinence, No Urgency, No Flank Pain, No Urinary Flow Changes, No Hesitancy Musculoskeletal : No joint pain, No Myalgias, No Joint Swelling Skin : No Skin Lesions, No rash Neuro : No Weakness, No Numbness, No Paresthesias, No Loss of Consciousness, No Dizziness, No Headache Psych : No Anxiety/Panic, No Depression, No SI/HI/AH/VH, No Social Issues, Heme/Lymph: No Bruising, No Bleeding,No Lymphadenopathy Endocrine : No Polyuria, No Polydipsia, No Temperature Intolerance Yes all other systems are reviewed and are negative and Unobtainable due to mental status PMFSH Past Medical History Medical History Anxiety Atrial fibrillation CKD (chronic kidney disease) stage 3, GFR 30-59 ml/min COPD (chronic obstructive pulmonary disease) Diabetes mellitus Diastolic heart failure Hyperlipidemia Iron deficiency anemia Obstructive sleep apnea Osteoarthritis Pacemaker Pulmonary hypertension Vitamin D deficiency Social History Social History Household Members: Other Housing: [facility] Alcohol intake: unknown Patient Tobacco Use Status: Never used Tobacco Use of substances other than those prescribed or required for medical reasons: No Currently Displaying Signs/Symptoms of Drug Intoxication Withdrawal: No Have you been hit, kicked, punched, or otherwise hurt by someone within the past year? If so, by whom?: No Do you feel safe in your current relationship?: No Current Relationship Is there a partner from a previous relationship who is making you feel unsafe now?: No Are you made to feel afraid or neglected: No Advance Directives: No Advance Directives Information Provided: Yes Advance Directives on File: Yes Advance Directives Date on File: 10/16/19 Do you have thoughts of harming others: None Do you have a plan to hurt others: No Plan Recently lost weight without trying: Unsure Nutrition Risks: On aspiration precautions Patient : No : No Poor oral hygiene: No Meds Allergies Allergy/AdvReac Type Severity Reaction Status Date / Time amoxicillin [From Augmentin] Allergy Unknown Unknown Verified 05/12/21 21:50 clavulanic acid Allergy Unknown Unknown Verified 05/12/21 21:50 [From Augmentin] Active Medications: Current Medications Generic Name Dose Route Start Last Admin Trade Name Freq PRN Reason Stop Dose Admin Acetaminophen 650 mg 05/13/21 01:43 Acetaminophen 325 Mg Tablet PO Q6H PRN Pain, Mild (Pain Scale 1-3) Calcitriol 0.25 mcg 05/13/21 09:00 Calcitriol 0.25 Mcg Capsule PO DAILY [facility] Dextrose 25 gm 05/13/21 05:40 Dextrose 50 % 25 Gm/50 Ml Vial IVPUSH Q15M PRN per Hypoglycemia Standing Ord. Protocol Diphenhydramine HCl 25 mg 05/13/21 02:53 Diphenhydramine Hcl 25 Mg Tablet PO DAILY PRN Itching Docusate Sodium 100 mg 05/13/21 01:43 Docusate Sodium 100 Mg Capsule PO DAILY PRN Constipation Fluticasone/Vilanterol 1 puff 05/13/21 09:00 05/13/21 07:56 Fluticasone/Vilanterol 100/25 Blst.W.Dev INHALE 1 puff DAILY [facility] Administration Gabapentin 100 mg 05/13/21 09:00 Gabapentin 100 Mg Capsule PO TID [facility] Glucose 15 gm 05/13/21 05:40 Glucose Gel 15 Gm Gel..Gram. PO Q15M PRN per Hypoglycemia Standing Ord. Protocol Lactated Ringer's 1,000 mls @ 100 mls/hr 05/13/21 01:43 05/13/21 02:34 Lr IVCONT 100 mls/hr .Q10H [facility] Administration Piperacillin Sod/Tazobactam 50 mls @ 100 mls/hr 05/13/21 14:00 Sod 2.275 gm/ Sodium Chloride IV Q8H [facility] Insulin Human Lispro 0 unit 05/13/21 07:30 05/13/21 07:21 Insulin Lispro 100 Unit/Ml 3 Ml Vial SUBCUT Not Given QIDACHS [facility] Protocol Lactulose 20 gm 05/13/21 09:00 Lactulose 20 Gm/30 Ml Solution PO DAILY [facility] Metoprolol Tartrate 12.5 mg 05/13/21 09:00 Metoprolol Tartrate 12.5 Mg Halftab PO BID [facility] Protocol Montelukast Sodium 10 mg 05/13/21 09:00 Montelukast Sodium 10 Mg Tablet PO DAILY [facility] Omeprazole 20 mg 05/13/21 09:00 Omeprazole 20 Mg Capsule.Dr PO DAILY [facility] Oxycodone HCl 7.5 mg 05/13/21 03:28 Oxycodone Hcl Immed Release 5 Mg Tablet PO Q4H PRN Pain (Scale Score 7-10) Pharmacy Consult 1 each 05/12/21 23:29 Consult Rx Perform Med Rec MISCELLANE ONCE PRN Consult order Rivaroxaban 15 mg 05/13/21 09:00 Rivaroxaban 15 Mg Tablet PO DAILY [facility] Sodium Chloride 3 ml 05/13/21 08:00 05/13/21 07:21 0.9 % Sodium Chloride Flush 3 Ml Syringe IVFLUSH Not Given QSHIFT [facility] Home Medications Medication Instructions Recorded Confirmed Last Taken Type bumetanide 1 mg tablet 1 tab PO DAILY 05/13/21 05/13/21 Unknown History calcitriol 0.25 mcg capsule 1 cap PO DAILY 05/13/21 05/13/21 Unknown History diphenhydramine HCl 25 mg capsule 25 mg PO DAILY PRN 05/13/21 05/13/21 Unknown History (Benadryl) fluticasone furoate 100 1 puff INHALATION DAILY 05/13/21 05/13/21 Unknown History mcg-vilanterol 25 mcg/dose inhalation powder (Breo Ellipta) gabapentin 100 mg capsule 100 mg PO TID 05/13/21 05/13/21 Unknown History lactulose 10 gram/15 mL oral 30 ml PO DAILY 05/13/21 05/13/21 Unknown History solution (Generlac) lovastatin 20 mg tablet 1 tab PO DAILY 05/13/21 05/13/21 Unknown History metoprolol tartrate 25 mg tablet 12.5 mg PO BID 05/13/21 05/13/21 Unknown History montelukast 10 mg tablet 1 tab PO DAILY 05/13/21 05/13/21 Unknown History omeprazole 20 mg capsule,delayed 1 cap PO DAILY 05/13/21 05/13/21 Unknown History release oxycodone-acetaminophen 7.5 mg-325 1 tab PO Q4H PRN 05/13/21 05/13/21 Unknown History mg tablet rivaroxaban 15 mg tablet (Xarelto) 1 tab PO DAILY 05/13/21 05/13/21 Unknown History sertraline 50 mg tablet 1 tab PO DAILY 05/13/21 05/13/21 Unknown History trazodone 100 mg tablet 100 mg PO BEDTIME 05/13/21 05/13/21 Unknown History trazodone 50 mg tablet 1 tab PO BEDTIME 05/13/21 05/13/21 Unknown History Physical Exam Vital Signs: Last Vital Signs Temp 97.4 F 05/13/21 07:41 Pulse 69 05/13/21 07:41 Resp 20 05/13/21 07:41 BP 119/57 L 05/13/21 07:41 Pulse Ox 99 05/13/21 07:41 Body Mass Index 37.8 Const Other: Appearance: Alert. Oriented X1. Confused, answering questions inappropriately Eyes: Pupils equal, round and reactive to light. ENT: Duration mucous membranes Neck: Normal inspection. Neck supple. No lymph nodes noted. No crepitus CVS: Normal heart rate and rhythm. Pulses normal. Normal S1 and S2 Respiratory: No respiratory distress. Bilateral rhonchi, oxygen saturation 84% on room air Abdomen: Soft , nondistended, seems nontender Skin: Skin warm and dry. Extremities: +2 bilateral pitting edema in lower extremites. No Lacerations. No Rash Neuro: Cranial nerves 2-12 grossly intact General: patient obtunded Orientation/consciousness: patient obtunded Eyes General: appearance normal, both eyes and all related structures Resp Effort & Inspection: normal respiratory effort Auscultation: rales and rhonchi Cardio Rate: regular rate Rhythm: regular rhythm GI Palpation (GI): Soft to palpation Auscultation: normal bowel sounds Skin General skin exam: no rashes or lesions noted Neuro General: patient obtunded Extrem General: Yes normal to inspection and Yes no pedal edema Results Lab Results Result Diagrams: 05/13/21 06:21 05/13/21 06:21 Lab results: Chemistry 05/12/21 05/13/21 22:12 06:21 Sodium 137 139 Potassium 3.9 3.9 Carbon Dioxide 22 20 L BUN 92 H* 85 H* Creatinine 3.87 H 3.31 H Calcium 8.8 8.2 L D Hematology 05/12/21 05/13/21 22:13 06:21 WBC 10.5 11.8 H Hgb 12.3 11.5 L Plt Count 359 217 D Urinalysis 05/12/21 22:19 Urine Color DARK YELLOW Urine Appearance CLEAR Urine pH 5.5 Ur Specific [place] 1.020 Urine Protein NEG Urine Glucose (UA) NEG Urine Ketones NEG Urine Blood NEG Urine Nitrite NEG Ur Leukocyte Esterase NEG Assessment and Plan (1) Acute respiratory failure with hypoxia: Status: Acute (2) Vomiting: Status: Acute (3) Aspiration pneumonia: Status: Acute (4) [id number] kidney injury: Status: Acute (5) Elevated troponin: Status: Acute (6) Prolonged QT interval: Status: Acute (7) Encephalopathy: Status: Acute 86-year-old female who was brought in from skilled nursing for unresponsiveness after she was found to have vomited all over herself. Found to be hypoxic # acute hypoxic respiratory failure - most likely secondary to aspiration pneumonia - patient was found unresponsive with vomit all over herself - on presentation O2 was 84 % on room air - currently on 2 L of oxygen satting 94% - has rhonchi on exam - chest x-ray negative but CT abdomen shows bilateral ground-glass opacities in the lung bases with nodular opacities throughout the visualized right lung. - at this time will cover her for aspiration pneumonia - O2 as required # encephalopathy - possibly secondary to MIKA/hypoxia - patient arousable but lethargic - management of pneumonia, MIKA, and hypoxia - follow mental status # vomiting - unclear etiology - abdominal CT/pelvic negative - given her prolonged QTC will be very conservative with Zofran - NPO # MIKA and CKD - significantly elevated creatinine - most likely prerenal secondary to dehydration - will start on IV fluids - follow BMP # elevated troponin - no EKG changes suggestive of ACS - has prolonged QT interval - troponin trended down - admit to telemetry MIKA pre-renal resolving with fluids off diuretics. Also element of CRS. Maximize heart failure and COPD treatment. Procedures Date of Service Date of Service: 05/13/21
--- NOTE | 2021-05-13 09:18 | PHA.MEDREC ---
Pharmacy Consult ? Medication Reconciliation Pharmacy has completed the medication reconciliation.pt from [facility]
[2021-05-13] MEDS: Lactulose 20 GM/30 ML SOLUTION PO (09:47)
[2021-05-13] MEDS: oxyCODONE HCl Immed Release 5 MG TABLET 7.5 MG PO (09:47)
[2021-05-13] MEDS: Omeprazole 20 MG CAPSULE.DR PO (09:49)
[2021-05-13] MEDS: calcitrioL 0.25 MCG CAPSULE PO (09:49)
[2021-05-13] MEDS: Montelukast Sodium 10 MG TABLET PO (09:49)
[2021-05-13] MEDS: Metoprolol Tartrate 12.5 MG HALFTAB PO ×2 (09:49→20:07)
[2021-05-13] MEDS: Gabapentin 100 MG CAPSULE PO ×3 (09:50→20:07)
[2021-05-13] MEDS: Rivaroxaban 15 MG TABLET PO (09:50)
--- NOTE | 2021-05-13 10:19 | MHC.CDI.CONC ---
CDI Concurrent Query Service Date: 05/13/21 Documentation Clarification: Please clarify if you are treating a probable/suspected/likely or confirmed: Acute encephalopathy Toxic encephalopathy Metabolic encephalopathy Other, please specify if known or undetermined Provider Response: Other Other Diagnosis: see note PLEASE DO NOT DELETE/MODIFY EXISTING CONTENT Additional information is needed in order to code to the highest accuracy and appropriate Severity of Illness (SOI). Please clarify the information noted below in your progress notes and discharge summary. Risk Factors/Clinical Indicators/Treatments Altered mental status, found unresponsive in the [facility], vomited, aspirated, lethargic, BP 96/79 HR 73. Patient is now awake, states feel ok, answering questions inappropriately. PN: encephalopathy CDS: Nicole Graves CCS, CDIS Contact Number: [phone] Please Review the information above and exercise your independent professional judgment in responding to the query. If you concur, pleas document in the PROGRESS NOTES and DISCHARGE SUMMARY. If you do not agree with the query, please document in the query above. THIS QUERY IS PART OF THE PERMANENT MEDICAL RECORD
[2021-05-13 11:27] LABS: Glucose, Whole Blood 149 mg/dL (60-115)
--- NOTE | 2021-05-13 12:33 | PM.EVENT ---
Event Note Date of Service: 05/13/21 Event Note: 86-year-old female who was brought in from long term for? unresponsiveness after she was found to have vomited all over herself.? Found to be hypoxic # acute hypoxic respiratory failure most likely secondary to aspiration pneumonia - patient was found unresponsive with vomit all over herself, on presentation O2 was 84 % on room air - currently on 2 L of oxygen satting 94%, lungs are clear to auscultation this morning - chest x-ray negative but CT abdomen shows bilateral ground-glass opacities in the lung bases with nodular opacities throughout the visualized right lung. - continue IV antibiotic and wean oxygen # acute toxic metabolic encephalopathy - possibly secondary to MIKA/hypoxia and infection Patient now awake alert providing good history, patient awake alert will resume diet # vomiting - no recurrent episode of nausea vomiting, CT/pelvic negative Continue supportive care and follow clinical course # MIKA and CKD stage 3 - significantly elevated creatinine likely pre renal creatinine improving with IV hydration follow BMP, hold Bumex and NSAID Nephro consult obtained # elevated troponin - no EKG changes suggestive of ACS, likely due to acute kidney injury, no chest pain # prolonged QTc - normal potassium, magnesium 2.6 - avoid QT prolonging medications check ekg # AFib - continue Xarelto, metoprolol # heart failure - although has elevated BNP, clinically does not appear to be in heart failure # fall with right hip pain according to patient she fell down in the bathroom at rehab and developed rt hip pain. Will obtain PT eval and add analgesic DVT prophylaxis:? Xarelto
--- NOTE | 2021-05-13 13:00 | MHC.CM.PN ---
MESSAGE LEFT FOR HCP (ON FILE AND VERIFIED) ANTONIO @ [phone]. REQUEST FOR ANTONIO TO CALL THIS PLANNED GIVING OFFICER BACK AND THAT IT IS NOT AN EMERGENCY. CONVERSATION WITH [facility] LIAISON, WHO IS AWARE OF ANTICIAPTED DISCHARGE DATE OF 05/17/21. PATIENT IS LTC AT [facility]. PLAN IS RETURN ONCE MEDICALLY STABLE. IMM 05/13 IN CHART.
[2021-05-13] MEDS: Piperacillin Sodium/Tazobactam 2.25 GM in 0.9 % Sodium Chloride 50 ML IV ×2 (14:02→20:08)
[2021-05-13] MEDS: 0.9 % Sodium Chloride Flush 3 ML SYRINGE IVFLUSH ×3 (14:58→20:53)
[2021-05-13 16:12] LABS: Glucose, Whole Blood 101 mg/dL (60-115)
[2021-05-13 19:44] LABS: Glucose, Whole Blood 94 mg/dL (60-115)
[2021-05-14] VITALS (8 sets, daily range): BP systolic 119–147; BP diastolic 48–65; PULSE 66–79; RESP 16–20; TEMP 36.1–36.3; O2SAT 90–99
[2021-05-14] MEDS: Piperacillin Sodium/Tazobactam 2.25 GM in 0.9 % Sodium Chloride 50 ML IV ×2 (04:47→13:07)
[2021-05-14] MEDS: Lactated Ringers 1,000 ML 100 ML IVCONT (04:48)
[2021-05-14 07:15] LABS: Blood Urea Nitrogen 77 mg/dL (9-16); Carbon Dioxide 25 mmol/L (22-29); Chloride 104 mmol/L (96-108); Creatinine Clr Calc Pharmacy 19.5; Estimated Glomerular Filt Rate 17; Glucose Random 111 mg/dL (60-115); Sodium 141 mmol/L (135-145)
[2021-05-14 07:28] LABS: Anion Gap 15 (12-20); Potassium 2.8 mmol/L (3.3-5.1)
--- NOTE | 2021-05-14 07:51 | P.PNNP_ITS ---
Subjective Subjective Date of Service: 05/14/21 Physical Exam Vital Signs: Vital Signs: Last Vital Signs Temp 97.2 F 05/14/21 03:33 Pulse 72 05/14/21 03:33 Resp 18 05/14/21 03:33 BP 119/48 L 05/14/21 03:33 Pulse Ox 96 05/14/21 03:33 Body Mass Index 37.8 Const: Other: Appearance: Alert. Oriented X1. Confused, answering questions inappropriately Eyes: Pupils equal, round and reactive to light. ENT: Duration mucous membranes Neck: Normal inspection. Neck supple. No lymph nodes noted. No crepitus CVS: Normal heart rate and rhythm. Pulses normal. Normal S1 and S2 Respiratory: No respiratory distress. Bilateral rhonchi, oxygen saturation 84% on room air Abdomen: Soft , nondistended, seems nontender Skin: Skin warm and dry. Extremities: +2 bilateral pitting edema in lower extremites. No Lacerations. No Rash Neuro: Cranial nerves 2-12 grossly intact General: patient obtunded Orientation/consciousness: patient obtunded Eyes: General: appearance normal, both eyes and all related structures Resp: Effort & Inspection: normal respiratory effort Auscultation: rales and rhonchi Cardio: Rate: regular rate Rhythm: regular rhythm GI: Palpation (GI): Soft to palpation Auscultation: normal bowel sounds Skin: General skin exam: no rashes or lesions noted Neuro: General: patient obtunded Extrem: General: Yes normal to inspection and Yes no pedal edema Objective Data Labs CBC & Chem 7: 05/13/21 06:21 05/14/21 06:06 Labs: Laboratory Results - last 24 hr 05/13/21 05/13/21 05/13/21 06:21 11:23 16:09 WBC 11.8 H RBC 4.02 L Hgb 11.5 L Hct 37.0 MCV 92.0 MCH 28.6 MCHC 31.1 RDW 13.9 Plt Count 217 D MPV 11.4 Immature Gran % (Auto) 0.6 H Neut % (Auto) 87.5 H Lymph % (Auto) 4.4 L [place] % (Auto) 7.0 Eos % (Auto) 0.2 Baso % (Auto) 0.3 Lymph # (Auto) 0.5 L [place] # (Auto) 0.8 Eos # (Auto) 0.0 Baso # (Auto) 0.0 Abs Immat Gran (auto) 0.07 H Absolute Neuts (auto) 10.3 H Absolute Nucleated RBC 0.000 Nucleated RBC % (auto) 0.0 Smear Tech's Comments VERIFIED Sodium Potassium Chloride Carbon Dioxide Anion Gap BUN Creatinine Estim Creat Clear Calc Estimated GFR POC Glucose 149 H 101 Random Glucose Calcium 05/13/21 05/14/21 19:35 06:06 WBC RBC Hgb Hct MCV MCH MCHC RDW Plt Count MPV Immature Gran % (Auto) Neut % (Auto) Lymph % (Auto) [place] % (Auto) Eos % (Auto) Baso % (Auto) Lymph # (Auto) [place] # (Auto) Eos # (Auto) Baso # (Auto) Abs Immat Gran (auto) Absolute Neuts (auto) Absolute Nucleated RBC Nucleated RBC % (auto) Smear Tech's Comments Sodium 141 Potassium 2.8 L D Chloride 104 Carbon Dioxide 25 Anion Gap 15 BUN 77 H Creatinine 2.74 H Estim Creat Clear Calc 19.5 Estimated GFR 17 POC Glucose 94 Random Glucose 111 Calcium 8.0 L Microbiology Microbiology Results: Microbiology 05/12/21 22:19 Blood - Venous Blood Culture - Preliminary No growth after 24 hours. 05/12/21 22:13 Blood - Venous Blood Culture - Preliminary No growth after 24 hours. Procedures Date of Service Date of Service: 05/14/21 Assessment & Plan Assessment and plan (1) Acute respiratory failure with hypoxia: Status: Acute (2) Vomiting: Status: Acute (3) Aspiration pneumonia: Status: Acute (4) Nalmu-qs-ehcyfyv kidney injury: Status: Acute (5) Elevated troponin: Status: Acute (6) Prolonged QT interval: Status: Acute (7) Encephalopathy: Status: Acute Assessment and Plan: 86-year-old female who was brought in from longterm for unresponsiveness after she was found to have vomited all over herself. Found to be hypoxic # acute hypoxic respiratory failure - most likely secondary to aspiration pneumonia - patient was found unresponsive with vomit all over herself - on presentation O2 was 84 % on room air - currently on 2 L of oxygen satting 94% - has rhonchi on exam - chest x-ray negative but CT abdomen shows bilateral ground-glass opacities in the lung bases with nodular opacities throughout the visualized right lung. - at this time will cover her for aspiration pneumonia - O2 as required # encephalopathy - possibly secondary to MIKA/hypoxia - patient arousable but lethargic - management of pneumonia, MIKA, and hypoxia - follow mental status # vomiting - unclear etiology - abdominal CT/pelvic negative - given her prolonged QTC will be very conservative with Zofran - NPO # MIKA and CKD - significantly elevated creatinine - most likely prerenal secondary to dehydration - will start on IV fluids - follow BMP # elevated troponin - no EKG changes suggestive of ACS - has prolonged QT interval - troponin trended down - admit to telemetry MIKA pre-renal resolving with fluids off diuretics. Also element of CRS. Maximize heart failure and COPD treatment. creat improved K 2.8 IV and PO KCL ordered Time Spent With Patient Time: Total time spent is greater than 50% in coordination of care (as documented) at patient's floor/unit and/or counseling patient: Progress Note: Quality Stroke Does the patient have a stroke diagnosis?: No
[2021-05-14 07:57] LABS: Glucose, Whole Blood 105 mg/dL (60-115)
[2021-05-14] MEDS: calcitrioL 0.25 MCG CAPSULE PO (08:02)
[2021-05-14] MEDS: Lactulose 20 GM/30 ML SOLUTION PO (08:02)
[2021-05-14] MEDS: Ascorbic Acid 500 MG TABLET PO (08:02)
[2021-05-14] MEDS: Gabapentin 100 MG CAPSULE PO ×3 (08:02→21:51)
[2021-05-14] MEDS: Omeprazole 20 MG CAPSULE.DR PO (08:02)
[2021-05-14] MEDS: Potassium Chloride ER 20 MEQ TAB.ER.PRT PO (08:02)
[2021-05-14] MEDS: Rivaroxaban 15 MG TABLET PO (08:02)
[2021-05-14] MEDS: Montelukast Sodium 10 MG TABLET PO (08:02)
[2021-05-14] MEDS: Metoprolol Tartrate 12.5 MG HALFTAB PO ×2 (08:03→21:52)
[2021-05-14] MEDS: Fluticasone/Vilanterol 100/25 BLST.W.DEV 1 PUFF INHALE (08:12)
[2021-05-14] MEDS: oxyCODONE HCl Immed Release 5 MG TABLET 7.5 MG PO ×3 (08:37→21:50)
[2021-05-14 11:46] LABS: Glucose, Whole Blood 121 mg/dL (60-115)
--- NOTE | 2021-05-14 15:20 | HO.PM.IMPN ---
Subjective Subjective Date of Service: 05/14/21 Interval History: Complaining of right hip pain, patient moans with pain with movement, no other acute issues overnight. Review of Systems General no headache, no dizziness ,no fever chills. CVS no chest pain, no palpitation. Respiratory c/o cough and sob . Gastrointestinal no nausea ,no vomiting, no abdominal pain Physical Exam Vital Signs: Vital Signs: Last Vital Signs Temp 96.9 F 05/14/21 15:03 Pulse 70 05/14/21 15:03 Resp 20 05/14/21 15:03 BP 139/65 05/14/21 15:03 Pulse Ox 99 05/14/21 15:03 Body Mass Index 37.8 General no acute distress. Neck supple no JVD. CVS regular rate rhythm, Respiratory lungs bibasilar coarse breath sound at bases, mild respiratory distress, no wheeze Gastrointestinal abdomen soft, nontender, bowel sounds audible, no no guarding , no rigidity. Extremities no edema. Right hip small bruise , pain with movement Neuro nonfocal , speech clear. Skin no rash Objective Data Current Medications Generic Name Dose Route Start Last Admin Trade Name Freq PRN Reason Stop Dose Admin Acetaminophen 650 mg 05/13/21 01:43 Acetaminophen 325 Mg Tablet PO Q6H PRN Pain, Mild (Pain Scale 1-3) Albuterol Sulfate 2 puff 05/13/21 12:31 Albuterol Sulfate 90 Mcg 8 Gm Inhaler INHALE Q4H PRN Shortness Of Breath Ascorbic Acid 500 mg 05/14/21 09:00 05/14/21 08:02 Ascorbic Acid 500 Mg Tablet PO 500 mg DAILY CARMEN Administration Calcitriol 0.25 mcg 05/13/21 09:00 05/14/21 08:02 Calcitriol 0.25 Mcg Capsule PO 0.25 mcg DAILY CARMEN Administration Dextrose 25 gm 05/13/21 05:40 Dextrose 50 % 25 Gm/50 Ml Vial IVPUSH Q15M PRN per Hypoglycemia Standing Ord. Protocol Diphenhydramine HCl 25 mg 05/13/21 02:53 Diphenhydramine Hcl 25 Mg Tablet PO DAILY PRN Itching Docusate Sodium 100 mg 05/13/21 01:43 Docusate Sodium 100 Mg Capsule PO DAILY PRN Constipation Doxycycline Hyclate 100 mg 05/14/21 15:00 05/14/21 14:38 Doxycycline Hyclate 100 Mg Tablet PO 100 mg Q12H CARMEN Administration Fluticasone/Vilanterol 1 puff 05/13/21 09:00 05/14/21 08:12 Fluticasone/Vilanterol 100/25 Blst.W.Dev INHALE 1 puff DAILY CARMEN Administration Gabapentin 100 mg 05/13/21 09:00 05/14/21 14:38 Gabapentin 100 Mg Capsule PO 100 mg TID CARMEN Administration Glucose 15 gm 05/13/21 05:40 Glucose Gel 15 Gm Gel..Gram. PO Q15M PRN per Hypoglycemia Standing Ord. Protocol Insulin Human Lispro 0 unit 05/13/21 07:30 05/14/21 12:10 Insulin Lispro 100 Unit/Ml 3 Ml Vial SUBCUT Not Given QIDACHS [facility] Protocol Lactulose 20 gm 05/13/21 09:00 05/14/21 08:02 Lactulose 20 Gm/30 Ml Solution PO 20 gm DAILY CARMEN Administration Melatonin 6 mg 05/13/21 12:34 Melatonin 3 Mg Tablet PO BEDTIME PRN Sleep Metoprolol Tartrate 12.5 mg 05/13/21 09:00 05/14/21 08:03 Metoprolol Tartrate 12.5 Mg Halftab PO 12.5 mg BID CARMEN Administration Protocol Montelukast Sodium 10 mg 05/13/21 09:00 05/14/21 08:02 Montelukast Sodium 10 Mg Tablet PO 10 mg DAILY CARMEN Administration Omeprazole 20 mg 05/13/21 09:00 05/14/21 08:02 Omeprazole 20 Mg Capsule.Dr PO 20 mg DAILY CARMEN Administration Oxycodone HCl 7.5 mg 05/13/21 03:28 05/14/21 13:07 Oxycodone Hcl Immed Release 5 Mg Tablet PO 7.5 mg Q4H PRN Administration Pain (Scale Score 7-10) Pharmacy Consult 1 each 05/12/21 23:29 Consult Rx Perform Med Rec MISCELLANE ONCE PRN Consult order Potassium Chloride 40 meq 05/14/21 21:00 Potassium Chloride Er 20 Meq Tab.Er.Prt PO BID CARMEN Rivaroxaban 15 mg 05/13/21 09:00 05/14/21 08:02 Rivaroxaban 15 Mg Tablet PO 15 mg DAILY CARMEN Administration Sodium Chloride 3 ml 05/13/21 08:00 05/14/21 08:01 0.9 % Sodium Chloride Flush 3 Ml Syringe IVFLUSH Not Given QSHIFT CARMEN Labs CBC & Chem 7: 05/13/21 06:21 05/14/21 06:06 Labs: Laboratory Results - last 24 hr 05/13/21 05/13/21 05/14/21 16:09 19:35 06:06 Anion Gap 15 Estim Creat Clear Calc 19.5 Estimated GFR 17 POC Glucose 101 94 Random Glucose 111 Calcium 8.0 L 05/14/21 05/14/21 07:53 11:17 Anion Gap Estim Creat Clear Calc Estimated GFR POC Glucose 105 121 H Random Glucose Calcium Microbiology Microbiology Results: Microbiology 05/12/21 22:19 Blood Culture - Preliminary Blood - Venous No growth after 24 hours. 05/12/21 22:13 Blood Culture - Preliminary Blood - Venous No growth after 24 hours. Assessment and Plan (1) Encephalopathy: Status: Acute (2) Prolonged QT interval: Status: Acute (3) Elevated troponin: Status: Acute (4) Acute respiratory failure with hypoxia: Status: Acute (5) Vomiting: Status: Acute (6) Aspiration pneumonia: Status: Acute (7) Txcqy-tj-jwjwuhj kidney injury: Status: Acute Assessment and Plan: 86-year-old female who [facility]? unresponsiveness after she was found to have vomited all over herself.? Found to be hypoxic # acute hypoxic respiratory failure most likely secondary to aspiration pneumonia - patient was found unresponsive with vomit over herself, on presentation O2 was 84 % on room air - this morning had mild shortness of breath, IV fluid discontinued, later oxygenation improved to 99% on room air - chest x-ray negative but CT abdomen shows bilateral ground-glass opacities in the lung bases with nodular opacities throughout the visualized right lung. - blood cultures x2 negative will change to by mouth antibiotic and follow clinical course # acute toxic metabolic encephalopathy - possibly secondary to MIKA/hypoxia and infection, now resolved ? # vomiting - no recurrent episode of nausea vomiting,? CT/pelvic negative ? Continue supportive care and follow clinical course # MIKA and CKD stage 3 - significantly elevated creatinine likely pre renal creatinine improving with IV hydration follow BMP, hold Bumex and NSAID Will discontinue further IV fluids due to history of CHF and elevated BNP and coarse breath sound at bases avoid nephrotoxins follow renal function Being followed by Nephrology # hypokalemia likely due to IV fluid hydration will replace and follow labs # elevated troponin - no EKG changes suggestive of ACS, likely due to acute kidney injury, no chest pain # prolonged QTc - normal potassium, magnesium 2.6 - avoid QT prolonging medications , repeat EKG showed improvement in QTC # AFib - continue Xarelto, metoprolol # heart failure - although has elevated BNP, clinically does not appear to be in heart failure follow clinical course # fall with right hip pain according to patient she fell down in the bathroom at rehab and developed rt hip pain. Due to persistent hip pain will obtain x-rays of hip, continue pain medication, obtain PT eval DVT prophylaxis:? Xarelto Quality Stroke Does the patient have a stroke diagnosis?: No VTE Prior VTE?: No VTE Risk Level:: Medical - moderate - high VTE Device Contraindication: Treatment Not Indicated VTE Drug Contraindication: N/A - Med Ordered
[2021-05-14 16:04] LABS: Glucose, Whole Blood 207 mg/dL (60-115)
--- NOTE | 2021-05-14 16:04 | PC.NURSE ---
1400 c/o right hip pain with repos. X Ray ordered by
[2021-05-14] MEDS: Insulin Lispro 100 UNIT/ML 3 ML VIAL SUBCUT (16:21)
[2021-05-14] MEDS: Acetaminophen 325 MG TABLET 650 MG PO (16:21)
[2021-05-14] MEDS: 0.9 % Sodium Chloride Flush 3 ML SYRINGE IVFLUSH ×2 (16:22→21:54)
[2021-05-14 20:22] LABS: Glucose, Whole Blood 81 mg/dL (60-115)
[2021-05-14 21:34] LABS: Glucose, Whole Blood 91 mg/dL (60-115)
[2021-05-14] MEDS: Potassium Chloride ER 20 MEQ TAB.ER.PRT 40 MEQ PO (21:51)
[2021-05-15] VITALS (7 sets, daily range): BP systolic 101–157; BP diastolic 54–97; PULSE 70–78; RESP 16–17; TEMP 36.2–36.7; O2SAT 99–100
[2021-05-15] MEDS: Acetaminophen 325 MG TABLET 650 MG PO (03:02)
[2021-05-15 06:12] LABS: MANUAL DIFF FLAG NO
[2021-05-15 06:14] LABS: Basophils Percent Auto 0.5 % (0-2); Eosinophils Absolute Auto 0.3 X10*3/uL (0.0-0.4); Eosinophils Percent Auto 3.5 % (0-4); Hemoglobin 10.8 g/dl (12.0-16.0); Imm Gran Pct Auto 1.3 % (0.0-0.4); Lymphocytes Absolute Auto 0.7 X10*3/uL (1.2-4.9); Lymphocytes Percent Auto 9.3 % (20-40); Mean Corpuscular HGB Conc 30.9 g/dl (31.0-35.0); Mean Corpuscular Hemoglobin 28.5 pg (27.0-33.0); Mean Corpuscular Volume 92.3 fL (80-98); Mean Platelet Volume 9.8 fL (9.4-12.3); Monocytes Absolute Auto 0.8 X10*3/uL (0.1-1.2); Monocytes Percent Auto 10.2 % (2-11); Neutrophils Absolute Auto 5.8 X10*3/uL (2.0-8.3); Neutrophils Percent Auto 75.2 % (45-73); Platelet Count 279 X10*3/uL (160-400); Red Blood Count 3.79 X10*6/uL (4.20-5.50); Red Cell Distribution Width 14.1 % (11.0-16.0); White Blood Count 7.7 X10*3/uL (4.8-10.8)
[2021-05-15 07:13] LABS: Anion Gap 16 (12-20); Blood Urea Nitrogen 70 mg/dL (9-16); Carbon Dioxide 21 mmol/L (22-29); Chloride 104 mmol/L (96-108); Creatinine Clr Calc Pharmacy 22.3; Estimated Glomerular Filt Rate 19; Glucose Random 107 mg/dL (60-115); Potassium 3.9 mmol/L (3.3-5.1); Sodium 137 mmol/L (135-145)
--- NOTE | 2021-05-15 07:31 | PM.PNNEP ---
Subjective Subjective Date of Service: 05/15/21 Interval history: Complaining of right hip pain, patient moans with pain with movement, no other acute issues overnight. Physical Exam Vital Signs: Vital Signs: Last Vital Signs Temp 97.2 F 05/15/21 04:00 Pulse 70 05/15/21 04:00 Resp 16 05/15/21 04:00 BP 125/97 H 05/15/21 04:00 Pulse Ox 100 05/15/21 04:00 Body Mass Index 37.8 Const: Other: Appearance: Alert. Oriented X1. Confused, answering questions inappropriately Eyes: Pupils equal, round and reactive to light. ENT: Duration mucous membranes Neck: Normal inspection. Neck supple. No lymph nodes noted. No crepitus CVS: Normal heart rate and rhythm. Pulses normal. Normal S1 and S2 Respiratory: No respiratory distress. Bilateral rhonchi, oxygen saturation 84% on room air Abdomen: Soft , nondistended, seems nontender Skin: Skin warm and dry. Extremities: +2 bilateral pitting edema in lower extremites. No Lacerations. No Rash Neuro: Cranial nerves 2-12 grossly intact General: patient obtunded Orientation/consciousness: patient obtunded Eyes: General: appearance normal, both eyes and all related structures Resp: Effort & Inspection: normal respiratory effort Auscultation: rales and rhonchi Cardio: Rate: regular rate Rhythm: regular rhythm GI: Palpation (GI): Soft to palpation Auscultation: normal bowel sounds Skin: General skin exam: no rashes or lesions noted Neuro: General: patient obtunded Extrem: General: Yes normal to inspection and Yes no pedal edema Objective Data Labs CBC & Chem 7: 05/15/21 06:06 05/15/21 06:06 Labs: Laboratory Results - last 24 hr 05/14/21 05/14/21 05/14/21 07:53 11:17 15:58 WBC RBC Hgb Hct MCV MCH MCHC RDW Plt Count MPV Immature Gran % (Auto) Neut % (Auto) Lymph % (Auto) [place] % (Auto) Eos % (Auto) Baso % (Auto) Lymph # (Auto) [place] # (Auto) Eos # (Auto) Baso # (Auto) Abs Immat Gran (auto) Absolute Neuts (auto) Absolute Nucleated RBC Nucleated RBC % (auto) Sodium Potassium Chloride Carbon Dioxide Anion Gap BUN Creatinine Estim Creat Clear Calc Estimated GFR POC Glucose 105 121 H 207 H Random Glucose Calcium 05/14/21 05/14/21 05/15/21 20:14 21:30 06:06 WBC 7.7 RBC 3.79 L Hgb 10.8 L Hct 35.0 L MCV 92.3 MCH 28.5 MCHC 30.9 L RDW 14.1 Plt Count 279 D MPV 9.8 Immature Gran % (Auto) 1.3 H Neut % (Auto) 75.2 H Lymph % (Auto) 9.3 L [place] % (Auto) 10.2 Eos % (Auto) 3.5 Baso % (Auto) 0.5 Lymph # (Auto) 0.7 L [place] # (Auto) 0.8 Eos # (Auto) 0.3 Baso # (Auto) 0.0 Abs Immat Gran (auto) 0.10 H Absolute Neuts (auto) 5.8 Absolute Nucleated RBC 0.000 Nucleated RBC % (auto) 0.0 Sodium Potassium Chloride Carbon Dioxide Anion Gap BUN Creatinine Estim Creat Clear Calc Estimated GFR POC Glucose 81 91 Random Glucose Calcium 05/15/21 06:06 WBC RBC Hgb Hct MCV MCH MCHC RDW Plt Count MPV Immature Gran % (Auto) Neut % (Auto) Lymph % (Auto) [place] % (Auto) Eos % (Auto) Baso % (Auto) Lymph # (Auto) [place] # (Auto) Eos # (Auto) Baso # (Auto) Abs Immat Gran (auto) Absolute Neuts (auto) Absolute Nucleated RBC Nucleated RBC % (auto) Sodium 137 Potassium 3.9 D Chloride 104 Carbon Dioxide 21 L Anion Gap 16 BUN 70 H Creatinine 2.39 H Estim Creat Clear Calc 22.3 Estimated GFR 19 POC Glucose Random Glucose 107 Calcium 8.0 L Microbiology Microbiology Results: Microbiology 05/12/21 22:19 Blood - Venous Blood Culture - Preliminary No growth after 48 hours. 05/12/21 22:13 Blood - Venous Blood Culture - Preliminary No growth after 48 hours. Procedures Date of Service Date of Service: 05/15/21 Assessment & Plan Assessment and plan (1) Encephalopathy: Status: Acute (2) Prolonged QT interval: Status: Acute (3) Elevated troponin: Status: Acute (4) Acute respiratory failure with hypoxia: Status: Acute (5) Vomiting: Status: Acute (6) Aspiration pneumonia: Status: Acute (7) Wltfk-zh-ztlzuub kidney injury: Status: Acute Assessment and Plan: 86-year-old female who [facility]? unresponsiveness after she was found to have vomited all over herself.? Found to be hypoxic # acute hypoxic respiratory failure most likely secondary to aspiration pneumonia - MIKA pre-renal resolving K corrected echocardiogram would be helpful as CRS a possibility Time Spent With Patient Time: Total time spent is greater than 50% in coordination of care (as documented) at patient's floor/unit and/or counseling patient: Progress Note: Quality Stroke Does the patient have a stroke diagnosis?: No
[2021-05-15 07:32] LABS: Glucose, Whole Blood 89 mg/dL (60-115)
[2021-05-15] MEDS: Fluticasone/Vilanterol 100/25 BLST.W.DEV 1 PUFF INHALE (08:03)
[2021-05-15] MEDS: 0.9 % Sodium Chloride Flush 3 ML SYRINGE IVFLUSH ×2 (09:01→15:23)
[2021-05-15] MEDS: Montelukast Sodium 10 MG TABLET PO (09:01)
[2021-05-15] MEDS: Gabapentin 100 MG CAPSULE PO ×2 (09:01→15:23)
[2021-05-15] MEDS: Lactulose 20 GM/30 ML SOLUTION PO (09:01)
[2021-05-15] MEDS: calcitrioL 0.25 MCG CAPSULE PO (09:01)
[2021-05-15] MEDS: Omeprazole 20 MG CAPSULE.DR PO (09:01)
[2021-05-15] MEDS: Rivaroxaban 15 MG TABLET PO (09:01)
[2021-05-15] MEDS: Ascorbic Acid 500 MG TABLET PO (09:02)
[2021-05-15] MEDS: oxyCODONE HCl Immed Release 5 MG TABLET 7.5 MG PO ×2 (09:02→15:27)
[2021-05-15] MEDS: Metoprolol Tartrate 12.5 MG HALFTAB PO (09:02)
[2021-05-15 11:12] LABS: Glucose, Whole Blood 146 mg/dL (60-115)
[2021-05-15 16:17] LABS: Glucose, Whole Blood 131 mg/dL (60-115)
--- NOTE | 2021-05-15 16:43 | MHC.CM.PN ---
PATIENT IS DISCHARGED BACK TO [facility]IA [facility]. TIME SCHEDULED FOR 1800. RN AND UNIT AWARE OF PLAN. ANTONIO MANSFIELD ([phone]) ALSO AWARE.
--- NOTE | 2021-05-15 16:54 | P.DS_ITS ---
DS: Providers Provider Date of Service: 05/15/21 Date of admission: 05/13/21 01:23 Primary care physician: Esau Will MD Consults: 05/13/21 08:15 Consult to Nephrology Routine Consulting Provider: José Miguel Calle Reason for consultation: mika on ckd DS: Diagnosis Discharge Diagnosis (1) Encephalopathy: Status: Acute (2) Prolonged QT interval: Status: Acute (3) Elevated troponin: Status: Acute (4) Acute respiratory failure with hypoxia: Status: Acute (5) Vomiting: Status: Acute (6) Aspiration pneumonia: Status: Acute (7) [id number] kidney injury: Status: Acute DS: Medications Discharge Medications Home Medications: Home Medications Medication Instructions Recorded Confirmed acetaminophen 325 mg tablet 650 mg PO Q4H PRN 05/13/21 05/13/21 albuterol sulfate 90 mcg/actuation 2 puff INHALATION Q4H PRN 05/13/21 05/13/21 aerosol inhaler (ProAir HFA) ascorbic acid (vitamin C) 500 mg 500 mg PO DAILY 05/13/21 05/13/21 tablet bisacodyl 10 mg rectal suppository 10 mg MT DAILY PRN 05/13/21 05/13/21 calcitriol 0.25 mcg capsule 1 cap PO DAILY 05/13/21 05/13/21 camphor-menthol 0.5 %-0.5 % lotion 1 appl TOPICAL TID 05/13/21 05/13/21 (Sarna Original) diphenhydramine HCl 25 mg capsule 25 mg PO DAILY PRN 05/13/21 05/13/21 (Benadryl) diphenhydramine HCl 25 mg tablet 25 mg PO Q6H PRN 05/13/21 05/13/21 ferrous sulfate 325 mg (65 mg 325 mg PO DAILY 05/13/21 05/13/21 iron) tablet fluticasone furoate 100 1 puff INHALATION DAILY 05/13/21 05/13/21 mcg-vilanterol 25 mcg/dose inhalation powder (Breo Ellipta) gabapentin 100 mg capsule 200 mg PO TID 05/13/21 05/13/21 guaifenesin 100 mg/5 mL oral liquid 100 mg PO Q4H PRN 05/13/21 05/13/21 ipratropium 20 mcg-albuterol 100 1 puff INHALATION QID PRN 05/13/21 05/13/21 mcg/actuation mist for inhalation (Combivent Respimat) lactulose 10 gram/15 mL oral 30 ml PO DAILY 05/13/21 05/13/21 solution lactulose 10 gram/15 mL oral 30 ml PO DAILY PRN 05/13/21 05/13/21 solution (Generlac) lovastatin 20 mg tablet 1 tab PO DAILY 05/13/21 05/13/21 melatonin 5 mg tablet 5 mg PO BEDTIME PRN 05/13/21 05/13/21 metoprolol tartrate 25 mg tablet 12.5 mg PO BID 05/13/21 05/13/21 montelukast 10 mg tablet 1 tab PO DAILY 05/13/21 05/13/21 omeprazole 20 mg capsule,delayed 1 cap PO DAILY@0630 05/13/21 05/13/21 release oxycodone-acetaminophen 7.5 mg-325 1 tab PO Q4H PRN 05/13/21 05/13/21 mg tablet rivaroxaban 15 mg tablet (Xarelto) 1 tab PO DAILY 05/13/21 05/13/21 sennosides 8.6 mg tablet (senna) 8.6 mg PO BEDTIME PRN 05/13/21 05/13/21 sertraline 50 mg tablet 1 tab PO DAILY 05/13/21 05/13/21 trazodone 100 mg tablet 100 mg PO BEDTIME 05/13/21 05/13/21 Previous Rx's Medication Instructions Recorded bumetanide 1 mg tablet 2 mg PO BID@0800,1700 #0 tab 05/15/21 doxycycline hyclate 100 mg tablet 100 mg PO Q12H #10 tab 05/15/21 DS: Summary Hospital Course Hospital Course: history of presenting illness Chief Complaint: Unresponsive This is an 86-year-old female with past medical history of AFib, CKD, COPD, DM, diastolic heart failure, HLD, anxiety, PATSY, pulmonary hypertension, who is sent from half-way after being found unresponsive in bed with vomit all over her.? Patient's patch speaking, very lethargic and somnolent unable to get much history from her.? Therefore history is obtained mostly from ED physician.? On arrival to the ED patient was found to have a temp of a 100.3?, was satting 84% on room air, currently on 2 L satting 94%.? Her other vitals are significant for blood pressure of 101/45 and a heart rate 78. ? For WBC count of 10.5, hemoglobin of 12.3, venous blood pH of 7.53 with no significant abnormality otherwise BUN of 92, creatinine of 3.87 with baseline around 32/1.91, AST of 37, has sensed V troponin 73.6, trended down to 51.8, BNP of 366, albumin of 3.2, UA negative.? Chest x-ray negative.? COVID negative. Hospital course 86-year-old female who was brought in from half-way for? unresponsiveness a fter she was found to have vomited all over herself and Found to be hypoxic, later once patient became more awake alert admitted that she fell down on her right side while walking to the bathroom and complained of right hip and leg pain. # acute hypoxic respiratory failure most likely secondary to aspiration pneumonia, chest x-ray negative but CT abdomen shows bilateral ground-glass opacities, patient treated with IV Antibiotics, oxygen and cough medication, blood cultures x2 came back negative, patient oxygenation improved she is now being discharged home on by mouth antibiotic to finish a total 7 day course of antibiotic, her oxygenation is stable on room air # acute toxic metabolic encephalopathy possibly secondary to MIKA/hypoxia and infection, now resolved. ? # vomiting, no recurrent episode of nausea/ vomiting,? CT/pelvic negative, likely symptoms were due to infectio.n ? # MIKA and CKD stage 3, patient treated with IV fluids Bumex and NSAIDs were held, renal function returned to baseline, recommend min to abstain from NSAIDs and dose of Bumex reduced to 2 mg twice a daily # hypokalemia likely due to IV fluid replaced and resolved # elevated troponin with no EKG changes , likely due to acute kidney injury, no chest pain, no further workup required # AFib continue Xarelto, metoprolol # heart failure noted to have elevated BNP, clinically did not appear to be in heart failure, continue Bumex. # fall with right hip pain according to patient she fell down in the bathroom at rehab and developed rt hip pain, x-rays of hip and pelvis showed no acute acute fracture likely bony contusion Continue oxycodone and Tylenol ?? Time Spent with Patient Time attestation: Total time spent providing and/or coordinating discharge services: Discharge coordination time: Greater than 30 minutes Quality: Stroke Does the patient have a stroke diagnosis?: No Physical Exam Vital Signs: Vital Signs: Last Vital Signs Temp 98.1 F 05/15/21 16:00 Pulse 70 05/15/21 16:00 Resp 16 05/15/21 16:00 BP 157/77 H 05/15/21 16:00 Pulse Ox 99 05/15/21 16:00 Body Mass Index 37.8 General no acute distress.? Neck supple no JVD. CVS? regular rate rhythm, Respiratory lungs bibasilar coarse breath sound at bases, no respiratory distress, no wheeze Gastrointestinal abdomen soft, nontender, bowel sounds audible, no guarding , no rigidity. Extremities trace edema. Right hip small bruise ,good rom Neuro nonfocal , speech clear. Skin no rash DS: Data Data Completed and Pending Labs on day of discharge: Laboratory Results - last 24 hr 05/14/21 05/14/21 05/15/21 20:14 21:30 06:06 WBC 7.7 RBC 3.79 L Hgb 10.8 L Hct 35.0 L MCV 92.3 MCH 28.5 MCHC 30.9 L RDW 14.1 Plt Count 279 D MPV 9.8 Immature Gran % (Auto) 1.3 H Neut % (Auto) 75.2 H Lymph % (Auto) 9.3 L [place] % (Auto) 10.2 Eos % (Auto) 3.5 Baso % (Auto) 0.5 Lymph # (Auto) 0.7 L [place] # (Auto) 0.8 Eos # (Auto) 0.3 Baso # (Auto) 0.0 Abs Immat Gran (auto) 0.10 H Absolute Neuts (auto) 5.8 Absolute Nucleated RBC 0.000 Nucleated RBC % (auto) 0.0 Sodium Potassium Chloride Carbon Dioxide Anion Gap BUN Creatinine Estim Creat Clear Calc Estimated GFR POC Glucose 81 91 Random Glucose Calcium 05/15/21 05/15/21 05/15/21 06:06 07:28 11:08 WBC RBC Hgb Hct MCV MCH MCHC RDW Plt Count MPV Immature Gran % (Auto) Neut % (Auto) Lymph % (Auto) [place] % (Auto) Eos % (Auto) Baso % (Auto) Lymph # (Auto) [place] # (Auto) Eos # (Auto) Baso # (Auto) Abs Immat Gran (auto) Absolute Neuts (auto) Absolute Nucleated RBC Nucleated RBC % (auto) Sodium 137 Potassium 3.9 D Chloride 104 Carbon Dioxide 21 L Anion Gap 16 BUN 70 H Creatinine 2.39 H Estim Creat Clear Calc 22.3 Estimated GFR 19 POC Glucose 89 146 H Random Glucose 107 Calcium 8.0 L 05/15/21 16:12 WBC RBC Hgb Hct MCV MCH MCHC RDW Plt Count MPV Immature Gran % (Auto) Neut % (Auto) Lymph % (Auto) [place] % (Auto) Eos % (Auto) Baso % (Auto) Lymph # (Auto) [place] # (Auto) Eos # (Auto) Baso # (Auto) Abs Immat Gran (auto) Absolute Neuts (auto) Absolute Nucleated RBC Nucleated RBC % (auto) Sodium Potassium Chloride Carbon Dioxide Anion Gap BUN Creatinine Estim Creat Clear Calc Estimated GFR POC Glucose 131 H Random Glucose Calcium Preliminary micro results at discharge 05/12/21 22:19 Blood Culture - Preliminary Blood - Venous No growth after 48 hours. 05/12/21 22:13 Blood Culture - Preliminary Blood - Venous No growth after 48 hours. Discharge Plan Discharge Patient Disposition: [facility] Discharge Diagnosis: Acute hypoxic respiratory failure Aspiration pneumonia Acute toxic metabolic encephalopathy MIKA on chronic kidney disease stage 3 Hypokalemia Elevated troponin Prolonged QTC Referrals: [facility] [Outside] - 1 Week Esau Will MD [Primary Care Provider] - 1 Week Discharge Medications: New doxycycline hyclate 100 mg Tablet 100 mg PO Q12H Qty: 10 RF: 0 Continued omeprazole 20 mg capsule,delayed release(DR/EC) 1 cap PO DAILY@0630 RF: 0 bumetanide 1 mg tablet 3 mg PO BID@0800,1700 RF: 0 montelukast 10 mg tablet 1 tab PO DAILY RF: 0 oxycodone-acetaminophen 7.5-325 mg tablet 1 tab PO Q4H PRN (Reason: Pain (Scale Score 7-10)) RF: 0 lovastatin 20 mg tablet 1 tab PO DAILY RF: 0 sertraline 50 mg tablet 1 tab PO DAILY RF: 0 calcitriol 0.25 mcg capsule 1 cap PO DAILY RF: 0 lactulose [Generlac] 10 gram/15 mL solution 30 ml PO DAILY PRN (Reason: Constipation) RF: 0 Xarelto 15 mg tablet 1 tab PO DAILY RF: 0 Breo Ellipta 100-25 mcg/dose blister with device 1 puff inhalation DAILY RF: 0 trazodone 100 mg Tablet 100 mg PO BEDTIME RF: 0 diphenhydramine HCl [Benadryl] 25 mg Capsule 25 mg PO DAILY PRN (Reason: Itching) RF: 0 gabapentin 100 mg Capsule 200 mg PO TID RF: 0 metoprolol tartrate 25 mg Tablet 12.5 mg PO BID RF: 0 acetaminophen 325 mg Tablet 650 mg PO Q4H PRN (Reason: Pain (Scale Score 1-3)) RF: 0 bisacodyl 10 mg Suppository 10 mg MT DAILY PRN (Reason: Constipation) RF: 0 diphenhydramine HCl 25 mg Tablet 25 mg PO Q6H PRN (Reason: Itching) RF: 0 albuterol sulfate [ProAir HFA] 90 mcg/actuation Hfa Aerosol Inhaler 2 puff INHALATION Q4H PRN (Reason: Shortness Of Breath) RF: 0 Combivent Respimat 20-100 mcg/actuation Mist 1 puff INHALATION QID PRN (Reason: Shortness Of Breath) RF: 0 sennosides [senna] 8.6 mg Tablet 8.6 mg PO BEDTIME PRN (Reason: Constipation) RF: 0 guaifenesin 100 mg/5 mL Liquid 100 mg PO Q4H PRN (Reason: Cough) RF: 0 ascorbic acid (vitamin C) 500 mg Tablet 500 mg PO DAILY RF: 0 ferrous sulfate 325 mg (65 mg iron) Tablet 325 mg PO DAILY RF: 0 Sarna Original 0.5-0.5 % Lotion 1 appl TOPICAL TID RF: 0 lactulose 10 gram/15 mL Solution 30 ml PO DAILY RF: 0 melatonin 5 mg Tablet 5 mg PO BEDTIME PRN (Reason: Sleep) RF: 0 Changed bumetanide 1 mg tablet 2 mg PO BID@0800,1700 Qty: 0 RF: 0 Discontinued ibuprofen 100 mg Tablet 200 mg PO Q6H PRN (Reason: Pain (Scale Score 4-6)) RF: 0 Discharge Orders: Discharge Order (Routine); Ordered 05/15/21 Ordered By: Malcom [place] Diet: low fat, low cholesterol and low salt diet Activity on Discharge: As tolerated Stand Alone Forms: Patient Portal Discharge page Care Plan Goals: Continue doxycycline for pneumonia, stable oxygenation no further bout of nausea vomiting , resume baseline activity Health Concerns: Congestive heart failure, chronic kidney disease take all home medication dose of Bumex reduced to 2 mg b.i.d. follow clinical course Avoid NSAIDs due to chronic kidney disease Plan of Treatment: Outpatient follow-up with PCP in 1 week Assessment: As above
== END 2021-05-15 18:30 | disposition skilled nursing facility (03) | DRG 177 ==
LOC: HO.ED 05-13 01:30 → HO.EDOVER 05-13 01:52 → HO.S3 05-13 03:55
PROVIDERS: Admitting Provider Internal Medicine; Emergency Provider Emergency Medicine; PCP Family Medicine; Visit Provider Hospitalist
DX: J69.0 Pneumonitis due to inhalation of food and vomit (principal); J96.01 Acute respiratory failure with hypoxia; G92 Toxic encephalopathy; N17.9 Acute kidney failure, unspecified; I13.0 Hypertensive heart and chronic kidney disease with heart failure and stage 1 through stage 4 chronic kidney disease, or unspecified chronic kidney disease; I50.32 Chronic diastolic (congestive) heart failure; Z20.822 Contact with and (suspected) exposure to COVID-19; R94.31 Abnormal electrocardiogram [ECG] [EKG]; E11.22 Type 2 diabetes mellitus with diabetic chronic kidney disease; M25.551 Pain in right hip; E87.6 Hypokalemia; N18.30 Chronic kidney disease, stage 3 unspecified; E78.5 Hyperlipidemia, unspecified; Z95.0 Presence of cardiac pacemaker; Z88.0 Allergy status to penicillin; Z79.01 Long term (current) use of anticoagulants; Z79.899 Other long term (current) drug therapy
CPT/HCPCS: 0241U; 36415; 70450; 71045; 73521; 74176; 80048; 80076; 81003; 82803; 82947; 83605; 83735; 83880; 84484; 85025; 87040; 93005; 97162; 99285; J2405; J2543